=== PATIENT | male | born 1960 | race Two or more races ===

== ENCOUNTER 2024-08-22 09:46 | Outpatient (RCR) | payer MEDICAID, SELFPAY | END 2024-09-05 23:59 | disposition home or self-care (01) | LOC: SCTC 09:46 | PROVIDERS: Referring Provider Nurse Practitioner Family; Visit Provider Nurse Practitioner Family | DX: C18.2 Malignant neoplasm of ascending colon (principal); Z90.49 Acquired absence of other specified parts of digestive tract; R91.8 Other nonspecific abnormal finding of lung field; K64.9 Unspecified hemorrhoids | CPT/HCPCS: 99212; G0463 ==

== ENCOUNTER 2024-08-25 08:55 | Outpatient (AMB) | payer MEDICAID, SELFPAY ==
[2024-08-25 09:14] VITALS: BP 154/79; PULSE 118; RESP 19; TEMP 37.6; O2SAT 98; BMI 29.2
--- NOTE | 2024-08-25 09:14 | PD.GSCLVISIT ---
Vital Signs - [facility] 08/25/24 09:14 Height 1.65 m Height Method Stated Weight 79.634 kg Weight Measurement Method Standing Scale BMI 29.2 BP 154/79 H Blood Pressure Source Automatic Cuff Blood Pressure Location Left Upper Arm Position Sitting Respiration 19 Pulse 118 H Pulse Source Monitor Temp 99.7 F Temp Source Temporal Artery Scan Pulse Oximetry (%) 98 Oxygen Delivery Method Room Air Med/Allergies Allergies & Medications Allergies No Known Allergies Allergy (Verified 08/25/24 09:15) Medication Reconciliation cyanocobalamin (vitamin B-12) 1,000 mcg sublingual tablet 1,000 mcg sublingual QDAY #30 tabs 12/08/23 [Rx Confirmed 08/25/24] peg 3350-electrolytes 236 gram-22.74 gram-6.74 gram-5.86 gram solution (Golytely) 240 ml PO Q10M #4,000 mL 08/25/24 [Rx] MA Intake Visit Data Collection New Patient or Established: Established Patient (seen at [facility] within 3 years) Seen by Clinical Staff ONLY (RN/MA): No Reason for Visit:: FOLLOW UP Pain Present Currently: No Account Services Specialist Required: No PCP or OBGYN visit in last 3 months: Yes Hx Now: No Do You Feel Safe at Home: Yes Authorities Contacted: N/A Smoking Status Smoking Status: Never smoker Immunization / Flu Flu Vaccine in the Last 12 Months: Yes Flu Vaccine Exclusion Criteria: Already Received Past Medical History Past Medical History NEUROLOGIC: Negative Neurological Disorders or Seizures CARDIAC: Positive Deep Vein Thrombosis (LLE Feb 2023 when hospitalized for SBO 2/2 R colon adenocarcinoma s/p AC); Negative Cardiac Disorders or Congestive Heart Failure RESPIRATORY: Positive Chest Deformities (B/L pulmonary nodules of unknown significance); Negative Chronic Obstructive Pulmonary Disease (COPD) or Asthma GASTROINTESTINAL: Positive Gastrointestinal Disorders, Colorectal Cancer (R colonic adenocarcinoma s/p hemicolectomy (Feb 2023)), Hemorrhoids, Gastroesophageal Reflux Disease and Obesity (Not obesity, but yes NAFLD) GENITOURINARY: Negative Genitourinary Disorders or Renal Disease ENDOCRINE: Negative Endocrine Disorders, Diabetes Mellitus Type 1 or Diabetes Mellitus Type 2 HEMATOLOGIC: Positive Anemia (GERRI); Negative Blood Disorders or Sickle Cell Disease OTHER HISTORY: Positive Hospitalization (Feb 2023 for SBO 2/2 colonic adenocarcinoma), Blood Transfusions (On 02/24/2024. 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), Measles and Colorectal Cancer (R colonic adenocarcinoma s/p hemicolectomy (Feb 2023)); Negative Shingles, Falls, Blood Transfusion Reaction, Anesthesia Reactions, Chemotherapy or Radiation Therapy Family History FAMILY HISTORY: Positive Family Cancer (FATHER,MOTHER); Negative Family Neurologic Problems, Family Psychiatric Problems, Family Respiratory Disorders, Family Cardiac Disorders, Family Gastrointestinal Problems, Family Surgery or Family Anesthesia Reaction Social History SMOKING STATUS: Smoking status: Never smoker ALCOHOL: Alcohol Intake: Never HOUSING: Housing: House LIVES WITH: Lives With: Children and Spouse HPI HPI Narrative 64M with stage IIA adenocarcinoma of R colon s/p hemicolectomy 02/2023 here for follow up. In recent weeks pt noted a bulging at the superior aspect of his midline incision, he denies any associated pain/nausea/vomiting but feels the bulge sometimes increases in size. He is otherwise doing well, having regular BMs and has returned to his usual weight. He has not yet had a colonoscopy but has followed up with oncology and as of last visit has not had any signs of cancer recurrence ROS Review of Systems Systems Reviewed: All systems reviewed, normal except as documented Objective/Exam General General Appearance: alert, cooperative and well groomed Resp Respiratory exam: Absent respiratory distress Abdominal Abdominal exam: Present soft and hernia (incisional hernia at superior aspect, approx 3cm in transverse dimension, reducible, no overlying skin changes); Absent distention or tenderness Assessment & Plan Diagnosis / Problem List (1) Incisional hernia of anterior abdominal wall without obstruction or gangrene: Status: Acute Assessment & Plan: 64M s/p R hemicolectomy 02/2023 for stage IIA colon cancer, with signs of an incisional hernia on exam. I explained to pt and family that surgery would ideally be undertaken laparoscopically with mesh placement; I have limited experience in this so I will refer to my colleague for evaluation (2) Colon cancer: Status: Chronic Qualifiers: Colon location: ascending Qualified Code(s): C18.2 - Malignant neoplasm of ascending colon Assessment & Plan: Pt has not yet had a colonoscopy so I will schedule DRAGAN (08/30/24). I explained benefits/risks including bleeding, perforation and/or the need to abort prematurely for safety. Pt expressed understanding and agrees to proceed Orders: Referrals General surgery K43.2 - Incisional hernia without obstruction or gangrene Office Procedures GNS Level of Care Nursing/Assessment Patient Status: Established Patient Nursing Assessment/Reassesment: Medication Reconciliation, Update PMH in EMR and Vital Signs Coordination of Care: Complex Care and Chronic Disease 1-5, Consent,records obtained, informed consent, Education Simp Pt/Fam, Results/Orders obtained and Staff clarify orders Established Patient Charge Established Patient Point Assignment: 90 Established Patient Point Charge: EP Level 3 (80-115) Patient Portal Questionaires Social History Living Situation History Housing: House Tobacco History Smoking Status: Never smoker Alcohol History Alcohol Intake: Never Domestic Abuse History Do You Feel Safe at Home: Yes Review of Systems Report any current symptoms Only answer those that you have currently: Past Medical History Past Medical History Have you ever been diagnosed with any of the following: Neurological Problems Seizures: No Cardiology Problems Congestive Heart Failure: No Deep Vein Thrombosis: Yes (LLE Feb 2023 when hospitalized for SBO 2/2 R colon adenocarcinoma s/p AC) Respiratory Problems Chronic Obstructive Pulmonary Disease (COPD): No Asthma: No Chest Deformities: Yes (B/L pulmonary nodules of unknown significance) Stomache/Intestinal Problems Colorectal Cancer: Yes (R colonic adenocarcinoma s/p hemicolectomy (Feb 2023)) Hemorrhoids: Yes Gastroesophageal Reflux Disease: Yes Obesity: Yes (Not obesity, but yes NAFLD) Genital/Urinary Problems Renal Disease: No Endocrine Problems Diabetes Mellitus Type 1: No Diabetes Mellitus Type 2: No Blood Problems Anemia: Yes (GERRI) Sickle Cell Disease: No Other Problems Hospitalization: Yes (Feb 2023 for SBO 2/2 colonic adenocarcinoma) Shingles: No Falls: No Blood Transfusions: Yes (On 02/24/2024. 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
== END 2024-08-25 09:40 | disposition home or self-care (01) ==
PROVIDERS: Supervising Provider Surgery; Visit Provider Surgery
DX: K43.2 Incisional hernia without obstruction or gangrene (principal); C18.2 Malignant neoplasm of ascending colon
CPT/HCPCS: 99213; G0463

== ENCOUNTER 2024-08-29 09:44 | Outpatient (AMB) | payer MEDICAID, SELFPAY ==
[2024-08-29 09:53] VITALS: BP 148/80; PULSE 77; RESP 16; TEMP 36.6; O2SAT 98; BMI 29.0
--- NOTE | 2024-08-29 09:53 | PD.RESCLINIC ---
Vital Signs 08/29/24 09:53 Height 1.65 m Height Method Stated Weight 79.038 kg Weight Measurement Method Standing Scale BMI 29.0 BP 148/80 H Blood Pressure Source Automatic Cuff Blood Pressure Location Right Upper Arm Position Sitting Respiration 16 Pulse 77 Pulse Source Monitor Temp 97.8 F Temp Source Temporal Artery Scan Pulse Oximetry (%) 98 Oxygen Delivery Method Room Air Allergies/Meds Allergies & Medications Allergies No Known Allergies Allergy (Verified 08/29/24 09:54) Medication Reconciliation cyanocobalamin (vitamin B-12) 1,000 mcg sublingual tablet 1,000 mcg sublingual QDAY #30 tabs 12/08/23 [Rx Confirmed 08/29/24] peg 3350-electrolytes 236 gram-22.74 gram-6.74 gram-5.86 gram solution (Golytely) 240 ml PO Q10M #4,000 mL 08/25/24 [Rx Confirmed 08/29/24] guaifenesin 200 mg tablet 200 mg PO QID PRN cough #24 tabs 08/29/24 [Rx] MA Intake Visit Data Collection New Patient or Established: Established Patient (seen at [facility] within 3 years) Seen by Clinical Staff ONLY (RN/MA): No Pain Present Currently: No Pain scale:: 0 Pain Scale Used: Freeman-Wagner/Numerical Crime Prevention Police Officer Required: No PCP or OBGYN visit in last 3 months: No Hx Now: No Do You Feel Safe at Home: Yes Authorities Contacted: N/A Smoking Status Smoking Status: Never smoker Immunization / Flu Flu Vaccine in the Last 12 Months: No Flu Vaccine Exclusion Criteria: No Exclusion Criteria Past Medical History Past Medical History NEUROLOGIC: Negative Neurological Disorders or Seizures CARDIAC: Positive Deep Vein Thrombosis (LLE Feb 2023 when hospitalized for SBO 2/2 R colon adenocarcinoma s/p AC); Negative Cardiac Disorders or Congestive Heart Failure RESPIRATORY: Positive Chest Deformities (B/L pulmonary nodules of unknown significance); Negative Chronic Obstructive Pulmonary Disease (COPD) or Asthma GASTROINTESTINAL: Positive Gastrointestinal Disorders, Colorectal Cancer (R colonic adenocarcinoma s/p hemicolectomy (Feb 2023)), Hemorrhoids, Gastroesophageal Reflux Disease and Obesity (Not obesity, but yes NAFLD) GENITOURINARY: Negative Genitourinary Disorders or Renal Disease ENDOCRINE: Negative Endocrine Disorders, Diabetes Mellitus Type 1 or Diabetes Mellitus Type 2 HEMATOLOGIC: Positive Anemia (GERRI); Negative Blood Disorders or Sickle Cell Disease OTHER HISTORY: Positive Hospitalization (Feb 2023 for SBO 2/2 colonic adenocarcinoma), Blood Transfusions (On 02/24/2024. *Note: patient is a Hindu), Measles and Colorectal Cancer (R colonic adenocarcinoma s/p hemicolectomy (Feb 2023)); Negative Shingles, Falls, Blood Transfusion Reaction, Anesthesia Reactions, Chemotherapy or Radiation Therapy Family History FAMILY HISTORY: Positive Family Cancer (FATHER,MOTHER); Negative Family Neurologic Problems, Family Psychiatric Problems, Family Respiratory Disorders, Family Cardiac Disorders, Family Gastrointestinal Problems, Family Surgery or Family Anesthesia Reaction Social History SMOKING STATUS: Smoking status: Never smoker ALCOHOL: Alcohol Intake: Never HOUSING: Housing: House LIVES WITH: Lives With: Children and Spouse Patient Portal Questionaires Social History Living Situation History Housing: House Tobacco History Smoking Status: Never smoker Alcohol History Alcohol Intake: Never Domestic Abuse History Do You Feel Safe at Home: Yes Review of Systems Report any current symptoms Only answer those that you have currently: Past Medical History Past Medical History Have you ever been diagnosed with any of the following: Neurological Problems Seizures: No Cardiology Problems Congestive Heart Failure: No Deep Vein Thrombosis: Yes (LLE Feb 2023 when hospitalized for SBO 2/2 R colon adenocarcinoma s/p AC) Respiratory Problems Chronic Obstructive Pulmonary Disease (COPD): No Asthma: No Chest Deformities: Yes (B/L pulmonary nodules of unknown significance) Stomache/Intestinal Problems Colorectal Cancer: Yes (R colonic adenocarcinoma s/p hemicolectomy (Feb 2023)) Hemorrhoids: Yes Gastroesophageal Reflux Disease: Yes Obesity: Yes (Not obesity, but yes NAFLD) Genital/Urinary Problems Renal Disease: No Endocrine Problems Diabetes Mellitus Type 1: No Diabetes Mellitus Type 2: No Blood Problems Anemia: Yes (GERRI) Sickle Cell Disease: No Other Problems Hospitalization: Yes (Feb 2023 for SBO 2/2 colonic adenocarcinoma) Shingles: No Falls: No Blood Transfusions: Yes (On 02/24/2024. *Note: patient is a Hindu) Blood Transfusion Reaction: No Anesthesia Reactions: No Chemotherapy: No Radiation Therapy: No Measles: Yes Surgical History Herniorrhaphy: Yes (ventral abdominal hernia repair) History of Present Illness HPI Narrative Mr. Elmore is a Armenian-speaking 63-year-old male Hindu with PMHx B/L pulmonary nodules of undetermined significance (per CT Jul 2023), GERD, NAFLD, chronic microcytic anemia, LGIB s/p hemorrhoidectomy & anal fissurectomy (Gen Surg Dr Marcelino 2018), s/p ventral abdominal hernia repair, extended hospitalization 02/05-03/03/[address] [facility] for SBO 2/2 invasive colonic adenocarcinoma s/p R hemicolectomy with ileocolic anastomosis (Gen Surg Dr Pandey 02/19/2023) complicated by E coli/marycarmen glabrata abdominal abscess at site of surgical wound, & LLE DVT completed AC course. 08/29/2024: Patient presents today for upper respiratory symptoms which started 4 days ago. Daughter is present who assists with translation. Patient endorses cough, phelgm, sore throat, and congestion. He had fever on the first day but it has since resolved. Patient has been using over the counter Vicks with some improvement. Overall the symptoms have seemed like they were improving. They have recently had a family friend visiting who traveled from [place] with flu-like symptoms and after that patient has been feeling sick. Patient denies any chest pain, shortness of breath, body aches, pain anywhere. Patient is otherwise planned for a colonoscopy for colon cancer follow up with Dr. Pandey on 09/06/2024. Objective/Exam Narrative Physical exam: Physical Exam General: Awake and in no acute distress. Conversational and non-toxic appearing. HEENT: Normocephalic, atraumatic, mucous membranes moist. Ear canals have dried dark cerumen, TMs clear. Post-nasal drip in posterior oropharynx. Nares clear. Mild areas of rash on the upper lip, not sharply demarcated. Heart: Regular rate and rhythm, no murmurs. Lungs: Clear to auscultation with no wheezing or crackles. Abdomen: Healed surgical scars about the umbilicus. Soft bulge above umbilicus reducible. Soft, nondistended, nontender, positive bowel sounds. ?No guarding or rebound tenderness. Neurologic: Alert and oriented x3, no gross neurological deficit, and patient able to move all 4 extremities. Extremities: No edema. Skin: No rash or ecchymoses. Assessment & Plan Diagnosis / Problem List (1) Upper respiratory infection: Status: Acute Qualifiers: URI type: unspecified viral URI Qualified Code(s): J06.9 - Acute upper respiratory infection, unspecified Assessment & Plan: Patient presents 08/29/2024 for 4 days of upper respiratory symptoms including cough, phelgm, sore throat, and congestion. +Sick contact at home. Reported fever on the first day. Symptoms have been improving. Likely to be a viral upper respiratory infection. Since patient is past the 48-hour viji of onset, he in unlikely to benefit from Tamiflu or Paxlovid. However will send tests for COVID, flu, currently no available in the office. Plan: -Ordered flu/COVID [facility] test -Prescribed guaifenesin 200 mg QID prn cough and phelgm -Instructed patient to stay hydrated and aim for 2L fluids daily, warm liquids, use Aquaphor on irritated skin below the nose (2) Colon cancer: Status: Chronic Qualifiers: Colon location: ascending Qualified Code(s): C18.2 - Malignant neoplasm of ascending colon Assessment & Plan: Patient had stage 2B invasive colonic adenocarcinoma s/p R hemicolectomy with ileocolic anastomosis (Dr. Pandey 02/19/2023) now also following with [facility] cancer center. Plan: -Follow up colonoscopy 09/06/2024 as scheduled -Follow up appointment with [facility] in 3 months Orders: Orders Ambulatory COVID-19 Antigen Today J06.9 - Acute upper respiratory infection, unspecified Influenza A & B Rapid Panel Today Office Procedures [facility] Level of Care Nursing/Assessment Patient Status: Established Patient Nursing Assessment/Reassessment: Medication Reconciliation, Update PMH in EMR and Vital Signs Coordination of Care: Complex Care and Chronic Disease 1-5, Consent,records obtained, informed consent, Education Simp Pt/Fam and Staff clarify orders Established Patient Charge Established Patient Point Assignment: 85 Established Patient Point Charge: Level 3 (80-115)
== END 2024-08-29 10:34 | disposition home or self-care (01) ==
LOC: HODAHC 09:44
PROVIDERS: Supervising Provider Internal Medicine
DX: J06.9 Acute upper respiratory infection, unspecified (principal); C18.2 Malignant neoplasm of ascending colon
CPT/HCPCS: 99213; G0463

== ENCOUNTER → 2024-09-07 | Outpatient (CLI) | payer MEDICAID, SELFPAY ==
--- NOTE | 2024-09-07 11:30 | XR_ITS ---
Examination: CT abdomen with intravenous contrast CT pelvis with intravenous contrast 2-D coronal reconstructions 2-D sagittal reconstructions Date and time of exam:September 07, [address] abdomen pelvis July 06, 2023, CT chest September 07, 2024. INDICATIONS: History intestinal obstruction, diagnosis malignant neoplasm colon, anterior umbilical discomfort one year CTDI: vol (mGy) 14.7 DLP: (mGycm) 513 Technique: Multiple axial sections of the abdomen and pelvis have been obtained. 64 slice high-resolution scanner used. 3 mm axial sections have been obtained, post intravenous injection 60 cc [id number] 2-D sagittal, coronal reconstructions obtained. Low dose protocols were performed. One or more of the following dose reduction techniques were used; automated exposure control, adjustment of the mA and/or KV according to patient size, use of iterative reconstruction technique. Findings: No focal liver or splenic lesions No gallstones No pancreatic or adrenal mass No renal or ureteral calculi, no hydronephrosis 5.4 cm umbilical hernia defect containing transverse colon, no incarcerated bowel or definite bowel obstruction Colonic diverticulosis More caudad left paracentral hernia defect, 6.8 cm, containing small bowel but again no incarcerated bowel Colonic diverticulosis Urinary bladder intact Transverse prostate dimension 37 mm Prominent osteopenia IMPRESSION: 5.4 cm umbilical hernia defect containing transverse colon, no incarcerated bowel More caudad left paracentral hernia defect 6.8 cm containing small bowel but no incarcerated bowel No abdominal or pelvic lymphadenopathy
--- NOTE | 2024-09-07 11:30 | XR_ITS ---
Examination: CT chest, without intravenous contrast. Sagittal and coronal 2-D reconstructions. Exam date and time: September 07, [address] chest January 14, 2024 INDICATIONS: Diagnosis malignant neoplasm of colon unspecified 2022, 4 mm pulmonary nodule left upper lobe 2 mm pulmonary nodule right middle lobe on CT chest January 14, 2024 CTDI:vol (mGy) 11 DLP: (mGycm) 440 Technique: Multiple 3.0 mm axial sections of the chest to been obtained. Bone and lung density settings are obtained. Sagittal and coronal 2-D reconstructions have been obtained. Low dose protocols were performed. One or more of the following dose reduction techniques were used; automated exposure control, adjustment of the mA and/or KV according to patient size, use of iterative reconstruction technique. Findings: No thoracic aortic aneurysm dilatation Pulmonary artery segments are not enlarged No interval paratracheal tracheobronchial or bronchopulmonary adenopathy Stable 4 mm pulmonary nodule left upper lobe 2 mm pulmonary nodule right middle lobe No new pulmonary nodules No pneumonia or pulmonary edema or pleural disease No visualized liver or splenic lesion Mildly distended gallbladder No pancreatic mass Moderate osteopenia IMPRESSION: Stable pulmonary nodules compared with January 14, 2024, no new pulmonary nodules No mediastinal lymphadenopathy No pneumonia or pulmonary edema or pleural disease
== END | disposition home or self-care (01) ==
PROVIDERS: PCP Student in an Organized Health Care Education/Training Program; Referring Provider Nurse Practitioner Family; Visit Provider Nurse Practitioner Family
DX: R91.8 Other nonspecific abnormal finding of lung field (principal); K42.9 Umbilical hernia without obstruction or gangrene; K46.9 Unspecified abdominal hernia without obstruction or gangrene; C18.9 Malignant neoplasm of colon, unspecified
CPT/HCPCS: 71250; 74177; A4649; Q9967

== ENCOUNTER 2024-09-08 08:45 | Day surgery (SDC) | payer MEDICAID, SELFPAY ==
[2024-09-08] VITALS (13 sets, daily range): BP systolic 106–169; BP diastolic 44–84; PULSE 72–99; RESP 12–18; TEMP 36.3–37.1; O2SAT 98–100; BMI 25.8
[2024-09-08] MEDS: RINGERS LACTATED 1000 ML 1,000 ML 20 ML IV (10:54)
[2024-09-08] MEDS: fentaNYL CIT INJ 50 mCg/ML AMP 2ML (ASD USE ONLY) IV (10:58)
[2024-09-08] MEDS: DiphenhydrAMINE INJ 50 MG/ML VIAL 25 MG IV (11:01)
[2024-09-08] MEDS: MEPERIDINE INJ 25 MG/ML VIAL (ASD USE ONLY) IV (11:04)
[2024-09-08] MEDS: MIDAZOLAM INJ 1 MG/ML VIAL 2 ML (ASD USE ONLY) 2 MG IV (11:07)
[2024-09-08] MEDS: SIMETHICONE 40 MG/0.6 ML ORAL SYRINGE PO (11:09)
[2024-09-09] MEDS: ONDANSETRON INJ 2 MG/ML INJ 2 ML 4 MG IV (11:09)
== END 2024-09-08 12:10 | disposition home or self-care (01) ==
PROVIDERS: Referring Provider Surgery; Visit Provider Surgery
PROC: 0DBE8ZX Excision of Large Intestine, Via Natural or Artificial Opening Endoscopic, Diagnostic (ICD-10-PCS; CPT 45380; principal; 2024-09-08 09:15)
DX: Z12.11 Encounter for screening for malignant neoplasm of colon (principal); Z85.038 Personal history of other malignant neoplasm of large intestine; D12.3 Benign neoplasm of transverse colon; K64.8 Other hemorrhoids; K57.30 Diverticulosis of large intestine without perforation or abscess without bleeding
CPT/HCPCS: 45385; J1200; J2175; J2250; J2405; J3010; J7120; A9270

== ENCOUNTER 2024-09-27 10:47 | Outpatient (RCR) | payer MEDICAID, SELFPAY | END 2024-10-05 23:59 | disposition home or self-care (01) | LOC: SCTC 10:47 | PROVIDERS: Referring Provider Nurse Practitioner Family; Visit Provider Nurse Practitioner Family | DX: C18.0 Malignant neoplasm of cecum (principal); R91.8 Other nonspecific abnormal finding of lung field; K57.90 Diverticulosis of intestine, part unspecified, without perforation or abscess without bleeding; K64.8 Other hemorrhoids; K42.9 Umbilical hernia without obstruction or gangrene; Z90.49 Acquired absence of other specified parts of digestive tract | CPT/HCPCS: 99212; G0463 ==

== ENCOUNTER 2024-10-03 10:08 | Outpatient (AMB) | payer MEDICAID, SELFPAY ==
--- NOTE | 2024-10-03 10:24 | PD.GSCLVISIT ---
Med/Allergies Allergies & Medications Allergies No Known Allergies Allergy (Verified 10/03/24 10:24) Medication Reconciliation cyanocobalamin (vitamin B-12) 1,000 mcg sublingual tablet 1,000 mcg sublingual QDAY #30 tabs 12/08/23 [Rx Confirmed 10/03/24] ascorbic acid (vitamin C) 125 mg capsule mg PO 10/03/24 [History Confirmed 10/03/24] cholecalciferol (vitamin D3) 25 mcg (1,000 unit) capsule 25 mcg PO QDAY 10/03/24 [History Confirmed 10/03/24] MA Intake Visit Data Collection New Patient or Established: Established Patient (seen at [facility] within 3 years) Reason for Visit:: COLONOSCOPY FOLLOW UP Pain Present Currently: No Pain scale:: 0 Pain Scale Used: Freeman-Wagner/Numerical PCP or OBGYN visit in last 3 months: Yes Hx Now: No Do You Feel Safe at Home: Yes Authorities Contacted: N/A Smoking Status Smoking Status: Former smoker Immunization / Flu Flu Vaccine in the Last 12 Months: Yes Flu Vaccine Exclusion Criteria: Already Received Past Medical History Past Medical History NEUROLOGIC: Negative Neurological Disorders or Seizures CARDIAC: Positive Deep Vein Thrombosis (LLE Feb 2023 when hospitalized for SBO 2/2 R colon adenocarcinoma s/p AC); Negative Cardiac Disorders or Congestive Heart Failure RESPIRATORY: Positive Chest Deformities (B/L pulmonary nodules of unknown significance); Negative Chronic Obstructive Pulmonary Disease (COPD) or Asthma GASTROINTESTINAL: Positive Gastrointestinal Disorders, Colorectal Cancer (R colonic adenocarcinoma s/p hemicolectomy (Feb 2023)), Obstructive Bowel (2022), Hemorrhoids, Gastroesophageal Reflux Disease and Obesity (Not obesity, but yes NAFLD) GENITOURINARY: Negative Genitourinary Disorders or Renal Disease ENDOCRINE: Negative Endocrine Disorders, Diabetes Mellitus Type 1 or Diabetes Mellitus Type 2 HEMATOLOGIC: Positive Anemia (IN THE PAST); Negative Blood Disorders or Sickle Cell Disease OTHER HISTORY: Positive Blood Transfusions (2022) and Colorectal Cancer (R colonic adenocarcinoma s/p hemicolectomy (Feb 2023)); Negative Hospitalization, Shingles, Falls, Blood Transfusion Reaction, Anesthesia Reactions, Chemotherapy, Radiation Therapy, Chicken Pox, Measles or Mumps Family History FAMILY HISTORY: Positive Family Cancer; Negative Family Neurologic Problems, Family Psychiatric Problems, Family Respiratory Disorders, Family Cardiac Disorders, Family Gastrointestinal Problems, Family Surgery or Family Anesthesia Reaction Surgical History SURGICAL: Positive Bowel Surgery (HEMICOLECTOMY) Social History SMOKING STATUS: Smoking status: Former smoker ALCOHOL: Alcohol Intake: Never HOUSING: Housing: House LIVES WITH: Lives With: Children and Spouse HPI HPI Narrative 64M with stage IIA adenocarcinoma of R colon s/p hemicolectomy 02/2023 here for follow up of colonoscopy which was done on 09/08/24 with findings of a diminutive transverse colon polyp (not retrieved), diverticulosis and internal hemorrhoids. Pt reports feeling very well with no pain, he is tolerating diet and has no complaints but is interested in following up for hernia repair ROS Review of Systems Systems Reviewed: All systems reviewed, normal except as documented Objective/Exam General General Appearance: alert, cooperative and well groomed Resp Respiratory exam: Absent respiratory distress Results Colonoscopy report reviewed CT chest and CT AP from 09/2024 reviewed Assessment & Plan Diagnosis / Problem List (1) Encounter to discuss colonoscopy results: Status: Acute Assessment & Plan: 64M with stage IIA adenocarcinoma of R colon s/p hemicolectomy 02/2023, now s/p colonoscopy 09/2024 with findings of a small transverse colon polyp and mild diverticulosis. I explained that given his history he should undergo next colonoscopy in 3 years. All questions were answered and pt is agreeable to this plan (2) Incisional hernia of anterior abdominal wall without obstruction or gangrene: Status: Acute Assessment & Plan: Given the size and somewhat complex nature of his ventral hernias I explained that I would like to refer to a nearby surgeon with more experience in this area. I will confer with my colleagues to see who is the best fit for the pt and will reach out to him by this afternoon to inform who he should follow up with Office Procedures GNS Level of Care Nursing/Assessment Patient Status: Established Patient Nursing Assessment/Reassesment: Medication Reconciliation, Update PMH in EMR and Vital Signs Coordination of Care: Complex Care and Chronic Disease 1-5, Education Complex Pt/Fam, Consent,records obtained, informed consent, Results/Orders obtained and Staff clarify orders Special Needs: Language special needs Established Patient Charge Established Patient Point Assignment: 95 Established Patient Point Charge: Level 3 (80-115) Patient Portal Questionaires Social History Living Situation History Housing: House Tobacco History Smoking Status: Former smoker Alcohol History Alcohol Intake: Never Domestic Abuse History Do You Feel Safe at Home: Yes Review of Systems Report any current symptoms Only answer those that you have currently: Past Medical History Past Medical History Have you ever been diagnosed with any of the following: Neurological Problems Seizures: No Cardiology Problems Congestive Heart Failure: No Deep Vein Thrombosis: Yes (LLE Feb 2023 when hospitalized for SBO 2/2 R colon adenocarcinoma s/p AC) Respiratory Problems Chronic Obstructive Pulmonary Disease (COPD): No Asthma: No Chest Deformities: Yes (B/L pulmonary nodules of unknown significance) Stomache/Intestinal Problems Colorectal Cancer: Yes (R colonic adenocarcinoma s/p hemicolectomy (Feb 2023)) Obstructive Bowel: Yes (2022) Hemorrhoids: Yes Gastroesophageal Reflux Disease: Yes Obesity: Yes (Not obesity, but yes NAFLD) Genital/Urinary Problems Renal Disease: No Endocrine Problems Diabetes Mellitus Type 1: No Diabetes Mellitus Type 2: No Blood Problems Anemia: Yes (IN THE PAST) Sickle Cell Disease: No Other Problems Hospitalization: No Shingles: No Falls: No Blood Transfusions: Yes (2022) Blood Transfusion Reaction: No Anesthesia Reactions: No Chemotherapy: No Radiation Therapy: No Chicken Pox: No Measles: No Mumps: No Surgical History Herniorrhaphy: Yes (ventral abdominal hernia repair)
[2024-10-03 15:33] VITALS: BP 135/78; PULSE 70; RESP 18; TEMP 36.2; O2SAT 99; BMI 29.5
== END 2024-10-03 10:37 | disposition home or self-care (01) ==
LOC: HODSRG 10:08
PROVIDERS: Supervising Provider Surgery; Visit Provider Surgery
DX: Z71.2 Person consulting for explanation of examination or test findings (principal); K63.5 Polyp of colon; K57.90 Diverticulosis of intestine, part unspecified, without perforation or abscess without bleeding; K43.2 Incisional hernia without obstruction or gangrene
CPT/HCPCS: 99213; G0463

== ENCOUNTER → 2024-10-19 | Outpatient (CLI) | payer MEDICAID, SELFPAY ==
--- NOTE | 2024-10-19 12:00 | XR_ITS ---
Examination: Bone densitometry Date and time of exam:September 19, 2024 1235 hours INDICATIONS: Diagnosis malignant neoplasm colon, diagnosis age related osteoporosis Technique: Lumbar spine and hip total bone mineralization values of an calculated. Peak reference and age match control results have been displayed. Findings: Lumbar spine total bone mineralization is0.942 gm/cm2. This is 1.4 standard deviations below peak reference. This is 0.7 standard deviations below age-matched controls. Hip total bone mineralization is 0.887 gm/cm2 This is 1.3 standard deviations below peak reference. This is 0.8 standard deviations below age-matched controls Impression: There is osteopenia based on lumbar spine measurements. There is osteopenia based on hip measurements
== END | disposition home or self-care (01) ==
PROVIDERS: Referring Provider Nurse Practitioner Family; Visit Provider Nurse Practitioner Family
DX: M85.89 Other specified disorders of bone density and structure, multiple sites (principal)
CPT/HCPCS: 77080

== ENCOUNTER 2024-11-15 11:25 | Outpatient (RCR) | payer MEDICAID, SELFPAY | END 2024-12-05 23:59 | disposition home or self-care (01) | LOC: SCTC 11:25 | PROVIDERS: PCP Student in an Organized Health Care Education/Training Program; Referring Provider Nurse Practitioner Family; Visit Provider Nurse Practitioner Family | DX: C18.0 Malignant neoplasm of cecum (principal); Z90.49 Acquired absence of other specified parts of digestive tract; K63.5 Polyp of colon; K64.8 Other hemorrhoids; K57.90 Diverticulosis of intestine, part unspecified, without perforation or abscess without bleeding; M85.80 Other specified disorders of bone density and structure, unspecified site; K42.9 Umbilical hernia without obstruction or gangrene | CPT/HCPCS: 99212; G0463 ==

== ENCOUNTER 2024-12-21 13:37 | Outpatient (AMB) | payer MEDICAID, SELFPAY ==
--- NOTE | 2024-12-21 13:46 | PD.GSCLVISIT ---
Vital Signs - [facility] 12/21/24 13:47 Height 1.65 m Height Method Measured Weight 81.25 kg Weight Measurement Method Standing Scale BMI 29.8 BP 135/74 H Blood Pressure Source Automatic Cuff Blood Pressure Location Right Upper Arm Position Sitting Respiration 16 Pulse 70 Pulse Source Monitor Temp 98.4 F Temp Source Temporal Artery Scan Pulse Oximetry (%) 98 Oxygen Delivery Method Room Air Med/Allergies Allergies & Medications Allergies No Known Allergies Allergy (Verified 12/23/24 19:22) Medication Reconciliation cyanocobalamin (vitamin B-12) 1,000 mcg sublingual tablet 1,000 mcg sublingual QDAY #30 tabs 12/08/23 [Rx Confirmed 12/21/24] ascorbic acid (vitamin C) 125 mg capsule mg PO 10/03/24 [History Confirmed 12/21/24] cholecalciferol (vitamin D3) 25 mcg (1,000 unit) capsule 25 mcg PO QDAY 10/03/24 [History Confirmed 12/21/24] MA Intake Visit Data Collection New Patient or Established: Established Patient (seen at [facility] within 3 years) Seen by Clinical Staff ONLY (RN/MA): Yes Pain Present Currently: No Sales And Service Change Leader Required: No PCP or OBGYN visit in last 3 months: Yes Hx Now: No Do You Feel Safe at Home: Yes Authorities Contacted: N/A Smoking Status Smoking Status: Former smoker Past Medical History Past Medical History NEUROLOGIC: Negative Neurological Disorders or Seizures CARDIAC: Positive Deep Vein Thrombosis (LLE Feb 2023 when hospitalized for SBO 2/2 R colon adenocarcinoma s/p AC); Negative Cardiac Disorders or Congestive Heart Failure RESPIRATORY: Positive Chest Deformities (B/L pulmonary nodules of unknown significance); Negative Chronic Obstructive Pulmonary Disease (COPD) or Asthma GASTROINTESTINAL: Positive Gastrointestinal Disorders, Colorectal Cancer (R colonic adenocarcinoma s/p hemicolectomy (Feb 2023)), Obstructive Bowel (2022), Hemorrhoids, Gastroesophageal Reflux Disease and Obesity (Not obesity, but yes NAFLD) GENITOURINARY: Negative Genitourinary Disorders or Renal Disease MUSCULOSKELETAL: Positive Musculoskeletal Disorders ENDOCRINE: Negative Endocrine Disorders, Diabetes Mellitus Type 1 or Diabetes Mellitus Type 2 HEMATOLOGIC: Positive Anemia (IN THE PAST); Negative Blood Disorders or Sickle Cell Disease OTHER HISTORY: Positive Blood Transfusions (2022) and Colorectal Cancer (R colonic adenocarcinoma s/p hemicolectomy (Feb 2023)); Negative Hospitalization, Shingles, Falls, Blood Transfusion Reaction, Anesthesia Reactions, Chemotherapy, Radiation Therapy, Chicken Pox, Measles or Mumps Family History FAMILY HISTORY: Positive Family Cancer; Negative Family Neurologic Problems, Family Psychiatric Problems, Family Respiratory Disorders, Family Cardiac Disorders, Family Gastrointestinal Problems, Family Surgery or Family Anesthesia Reaction Surgical History SURGICAL: Positive Bowel Surgery (HEMICOLECTOMY) Social History SMOKING STATUS: Smoking status: Former smoker SUBSTANCE USE: Substance use type: does not use ALCOHOL: Alcohol Intake: Never HOUSING: Housing: House LIVES WITH: Lives With: Children and Spouse Travel Risk Travel Hx Recent Travel: No Office Procedures GNS Level of Care Nursing/Assessment Patient Status: Established Patient Nursing Assessment/Reassesment: Medication Reconciliation, Update PMH in EMR and Vital Signs Coordination of Care: Complex Care and Chronic Disease 1-5, Consent,records obtained, informed consent, Education Simp Pt/Fam, Results/Orders obtained and Staff clarify orders Special Needs: Language special needs Established Patient Charge Established Patient Point Assignment: 90 Patient Portal Questionaires Social History Living Situation History Housing: House Tobacco History Smoking Status: Former smoker Alcohol History Alcohol Intake: Never Domestic Abuse History Do You Feel Safe at Home: Yes Review of Systems Report any current symptoms Only answer those that you have currently: Past Medical History Past Medical History Have you ever been diagnosed with any of the following: Neurological Problems Seizures: No Cardiology Problems Congestive Heart Failure: No Deep Vein Thrombosis: Yes (LLE Feb 2023 when hospitalized for SBO 2/2 R colon adenocarcinoma s/p AC) Respiratory Problems Chronic Obstructive Pulmonary Disease (COPD): No Asthma: No Chest Deformities: Yes (B/L pulmonary nodules of unknown significance) Stomache/Intestinal Problems Colorectal Cancer: Yes (R colonic adenocarcinoma s/p hemicolectomy (Feb 2023)) Obstructive Bowel: Yes (2022) Hemorrhoids: Yes Gastroesophageal Reflux Disease: Yes Obesity: Yes (Not obesity, but yes NAFLD) Genital/Urinary Problems Renal Disease: No Endocrine Problems Diabetes Mellitus Type 1: No Diabetes Mellitus Type 2: No Blood Problems Anemia: Yes (IN THE PAST) Sickle Cell Disease: No Other Problems Hospitalization: No Shingles: No Falls: No Blood Transfusions: Yes (2022) Blood Transfusion Reaction: No Anesthesia Reactions: No Chemotherapy: No Radiation Therapy: No Chicken Pox: No Measles: No Mumps: No Surgical History Herniorrhaphy: Yes (ventral abdominal hernia repair)
[2024-12-21 13:47] VITALS: BP 135/74; PULSE 70; RESP 16; TEMP 36.9; O2SAT 98; BMI 29.8
== END 2024-12-21 16:00 | disposition home or self-care (01) ==
LOC: HODSRG 13:37
PROVIDERS: PCP Student in an Organized Health Care Education/Training Program; Referring Provider Student in an Organized Health Care Education/Training Program; Supervising Provider Surgery; Visit Provider Surgery
DX: Z76.89 Persons encountering health services in other specified circumstances (principal)
CPT/HCPCS: 99213; G0463

== ENCOUNTER 2024-12-23 19:16 | Emergency (ER) | payer MEDICAID, SELFPAY ==
[2024-12-23 19:18] VITALS: BMI 27.3
[2024-12-23 19:28] VITALS: BP 156/84; PULSE 70; RESP 18; TEMP 36.6; O2SAT 97
--- NOTE | 2024-12-23 20:06 | PD.EDGIBLD ---
ED GI Bleed RME/HPI General Chief complaint: GI Bleed Stated complaint: rectal bleeding Time Seen by Provider: 12/23/24 20:01 Arrival date/time: 12/23/24 19:16 64M with history of R colonic adenocarcinoma s/p hemicolectomy and DVT presents to ED with several days of bright red rectal bleed after having BM. This started after Dr. Mendoza pressed on his stomach to evaluate for ab hernia after being referred by Dr. Pandey. Patient denies fevers/chills, N/V, ab pain, diarrhea, and constipation. Patient had normal colonoscopy back in August of this year. Limitations: no limitations Related Data Home Medications ?Medication ?Instructions ?Recorded ?Confirmed ascorbic acid (vitamin C) 125 mg mg PO 10/03/24 12/21/24 capsule cholecalciferol (vitamin D3) 25 25 mcg PO QDAY 10/03/24 12/21/24 mcg (1,000 unit) capsule Previous Rx's ?Medication ?Instructions ?Recorded cyanocobalamin (vitamin B-12) 1,000 mcg sublingual QDAY #30 tabs 12/08/23 1,000 mcg sublingual tablet Allergies Allergy/AdvReac Type Severity Reaction Status Date / Time No Known Allergies Allergy Verified 12/23/24 19:22 Review of Systems Review of Systems Systems Reviewed: All systems reviewed, normal except as documented Constitutional Constitutional: Reports system reviewed and no additional complaints, except as documented, Denies fever(s) and Denies headache(s) ENT Ears, Nose, Mouth, and Throat: Denies disequilibrium and Denies headache(s) Cardiovascular Cardiovascular: Reports system reviewed and no additional complaints, except as documented, Denies chest pain and Denies dyspnea Respiratory Respiratory: Reports system reviewed and no additional complaints, except as documented, Denies cough and Denies dyspnea Gastrointestinal Gastrointestinal: Reports system reviewed and no additional complaints, except as documented, Reports as per HPI, Denies abdominal pain, Reports hematochezia, Denies nausea and Denies vomiting Neurologic Neurologic: Reports system reviewed and no additional complaints, except as documented, Denies confusion, Denies disequilibrium and Denies headache(s) Psychiatric Psychiatric: Denies confusion Past Medical History Past Medical History NEUROLOGIC: Negative Neurological Disorders or Seizures CARDIAC: Positive Deep Vein Thrombosis (LLE Feb 2023 when hospitalized for SBO 2/2 R colon adenocarcinoma s/p AC); Negative Cardiac Disorders or Congestive Heart Failure RESPIRATORY: Positive Chest Deformities (B/L pulmonary nodules of unknown significance); Negative Chronic Obstructive Pulmonary Disease (COPD) or Asthma GASTROINTESTINAL: Positive Gastrointestinal Disorders, Colorectal Cancer (R colonic adenocarcinoma s/p hemicolectomy (Feb 2023)), Obstructive Bowel (2022), Hemorrhoids, Gastroesophageal Reflux Disease and Obesity (Not obesity, but yes NAFLD) GENITOURINARY: Negative Genitourinary Disorders or Renal Disease MUSCULOSKELETAL: Positive Musculoskeletal Disorders ENDOCRINE: Negative Endocrine Disorders, Diabetes Mellitus Type 1 or Diabetes Mellitus Type 2 HEMATOLOGIC: Positive Anemia (IN THE PAST); Negative Blood Disorders or Sickle Cell Disease OTHER HISTORY: Positive Blood Transfusions (2022) and Colorectal Cancer (R colonic adenocarcinoma s/p hemicolectomy (Feb 2023)); Negative Hospitalization, Shingles, Falls, Blood Transfusion Reaction, Anesthesia Reactions, Chemotherapy, Radiation Therapy, Chicken Pox, Measles or Mumps Family History FAMILY HISTORY: Positive Family Cancer; Negative Family Neurologic Problems, Family Psychiatric Problems, Family Respiratory Disorders, Family Cardiac Disorders, Family Gastrointestinal Problems, Family Surgery or Family Anesthesia Reaction Surgical History SURGICAL: Positive Bowel Surgery (HEMICOLECTOMY) Social History SMOKING STATUS: Never smoker SUBSTANCE USE: does not use ED Exam General Limitations: Present no limitations General appearance: Present alert and in no apparent distress Head Head exam: Present atraumatic Eye Eye exam: Present normal appearance, PERRL and EOMI ENT ENT exam: Present normal exam, normal oropharynx and mucous membranes moist Neck Neck exam: Present normal inspection, full ROM and trachea midline Chest Chest inspection: Present normal inspection and symmetric chest wall rise Respiratory Respiratory exam: Present normal lung sounds bilaterally Cardiovascular Cardiovascular exam: Present regular rate, normal rhythm and normal heart sounds Abdominal Exam Abdominal exam: Present soft and normal bowel sounds Rectal Exam Rectal exam: Present other (minimal bright red blood) Extremities Exam Extremities exam: Present normal inspection and full ROM Back Exam Back exam: Present normal inspection and full ROM Neurological Exam Neurological exam: Present alert, oriented X3 and CN II-XII intact Psychiatric Psychiatric exam: Present normal affect and normal mood Skin Skin exam: Present warm, dry, intact and normal color Course Quality Measures none Orders Category Date Time Status CBC Stat Lab 12/23/24 20:32 Completed CMP [Comprehensive Metabolic Panel] Stat Lab 12/23/24 20:32 Completed INR [Prothrombin Time with INR] Stat Lab 12/23/24 20:32 Completed PTT [Partial Thromboplastin Time] Stat Lab 12/23/24 20:32 Completed Vital Signs Vital signs: Vital Signs Temperature 97.9 F 12/23/24 19:28 Pulse Rate 70 12/23/24 19:28 Respiratory Rate 18 12/23/24 19:28 Blood Pressure 156/84 H 12/23/24 19:28 Pulse Oximetry (%) 97 12/23/24 19:28 Oxygen Delivery Method Room Air 12/23/24 19:28 O2 at 97% on RA and WNLs GI Bleed MDM Narrative MDM Narrative:: 64M with history of R colonic adenocarcinoma s/p hemicolectomy and DVT presents to ED with several days of bright red rectal bleed after having BM. This started after Dr. Mendoza pressed on his stomach to evaluate for ab hernia after being referred by Dr. Pandey. Patient denies fevers/chills, N/V, ab pain, diarrhea, and constipation. Patient had normal colonoscopy back in August of this year. Physical exam reveals non-tender ab. Rectal exam with machine coil assembler reveals no obvious hemorrhoids. Scant bright red blood. Patient is afebrile, calm, and alert. HgB 12.5. CMP and coags unremarkable. Spoke to Dr. Hall, GI, who agrees can be discharged and followed-up outpatient with strict return precautions. Patient data External records reviewed:: [facility] previous records Clinical information provided by:: patient Social determinants that could affect healthcare access:: none Patient has the following chronic illnesses:: R colonic adenocarcinoma s/p hemicolectomy and DVT How is presenting disease/condition affected by chronic disease/condition?: exacerbated by Evaluation data The following diagnostics were reviewed and interpreted by me:: lab results Lab and/or radiology exams considered but not ordered:: ordered Interpretation Summary: above Medications / Prescriptions Medications or Prescriptions considered but not ordered:: not rodered Medication administrations:: n/a Consultations Consultation(s) initiated? (list below): Yes Diagnosis GI bleed differential diagnosis: hemorrhoids, infectious diarrhea, esophageal varices, gastritis, Ese-Adorno syndrome, Upper gastrointestinal hemorrhage, Lower gastrointestinal hemorrhage, hematochezia, melena, anal fissure and other (bright red rectal bleeding) Most likely diagnosis given after review of the tests above:: bright red rectal bleeding Admission Indicated Admission indicated?: not indicated Admission Request Was there a request for admission?: No Disposition Plan Disposition Plan: Discharge Discharge Attestation Discharge Attestation: The patient and all family members were given an opportunity to ask questions and understood the discharge instructions. Discharge instructions specifically effects, indications for sooner follow up or return to the emergency department, and the expected course of current diagnosis. Patient condition: Stable Discharge Plan Plan Patient Disposition: HOME (Self Care) Discharge Disposition comment: Stable Prescriptions/Referrals Prescriptions/Med Rec: No Action cyanocobalamin (vitamin B-12) 1,000 mcg tablet, sublingual 1,000 mcg sublingual QDAY Qty: 30 3RF ascorbic acid (vitamin C) 125 mg capsule PO cholecalciferol (vitamin D3) 25 mcg (1,000 unit) capsule 25 mcg PO QDAY Referrals: No Primary/Family,Physician [Primary Care Provider] - In 1 week Problem List Clinical Impression: Bright red rectal bleeding Patient/Caregiver Discharge Instructions Education Materials: ED Lower GI Bleeding (Stable) Additional Instructions: Please follow-up with PCP within 24-48 hours and return immediately if symptoms worsen. Print Language: Rw[place]an Stand Alone Forms: Patient Portal Info Letter SEDA/SHANIQUA Supervising Physician RADHA Supervising Physician: Dr. Lyles
[2024-12-23 20:53] LABS: Basophils # (Auto) 0.1 Thou/mm3 (0.0-0.2); Basophils % (Auto) 1 % (0-2.5); Eosinophils # (Auto) 0.3 Thou/mm3 (0.0-0.5); Eosinophils % (Auto) 3 % (0-10); Hematocrit 39.1 % (41.0-53.0); Hemoglobin 12.5 g/dL (13.5-16.0); Immature Granulocytes Auto 0.02 Thou/mm3 (0.00-0.00); Lymphocytes # (Auto) 3.2 Thou/mm3 (1.0-4.8); Lymphocytes % (Auto) 34 % (10-50); Mean Corpuscular HGB Conc 32.0 g/dl (31.0-37.0); Mean Corpuscular Hemoglobin 31.2 pg (25.0-35.0); Mean Corpuscular Volume 98 fL (80-100); Monocytes # (Auto) 1.0 Thou/mm3 (0.0-0.8); Monocytes % (Auto) 11 % (0-12); Neutrophils # (Auto) 4.8 Thou/mm3 (1.8-7.7); Neutrophils % (Auto) 51 % (37-80); Nucleated Red Blood Cell # 0.00 Thou/mm3 (0.00-0.00); Nucleated Red Blood Cell % 0 /100 WBC (0); Platelet Count 274 Thou/mm3 (140-440); RDW Standard Deviation 45.1 fL (35.1-43.9); Red Blood Count 4.01 Miln/mm3 (4.50-5.90); White Blood Count 9.3 Thou/mm3 (3.8-10.6)
[2024-12-23 21:18] LABS: INR 1.0 (0.9-1.3); Partial Thromboplastin Time 29.2 Seconds (22.0-36.0); Prothrombin Time 11.1 Seconds (9.0-12.2)
[2024-12-23 21:22] LABS: Alanine Aminotransferase 11 U/L (10-49); Albumin, Serum 4.7 gm/dL (3.4-4.8); Albumin/Globulin Ratio 1.7 (1.2-2.2); Alkaline Phosphatase 100 U/L (46-116); Anion Gap 7 (7-16); Aspartate Amino Transferase 20 U/L (0-34); BUN/Creatinine Ratio 13 Ratio (12-20); Bilirubin,Total 0.3 mg/dL (0.3-1.2); Blood Urea Nitrogen 12 mg/dL (9-23); Calcium 9.6 mg/dL (8.3-10.6); Calcium (Corrected) 9.6 mg/dL (8.5-10.1); Carbon Dioxide 28.5 mMol/L (20.0-31.0); Chloride 104 mMol/L (98-107); Creatinine (Component) 0.9 mg/dL (0.6-1.3); Estimated Creatinine Clearance 81.3 mL/min (>60); Globulin 2.8 gm/dL (2.3-3.5); Glucose 78 mg/dL (74-106); Osmolality,Calculated 276 (275-295); Potassium 3.9 mMol/L (3.4-5.1); Sodium 139 mMol/L (136-145); Total Protein 7.5 gm/dL (5.7-8.2); eGFR > 60 See Note
== END 2024-12-23 21:48 | disposition home or self-care (01) ==
PROVIDERS: Physician Assistant; Emergency Provider Emergency Medicine
DX: K62.5 Hemorrhage of anus and rectum (principal)
CPT/HCPCS: 36415; 80053; 85025; 85610; 85730; 99283

== ENCOUNTER 2024-12-29 13:02 | Outpatient (AMB) | payer MEDICAID, SELFPAY ==
[2024-12-29 13:12] VITALS: BP 145/84; PULSE 73; RESP 18; TEMP 36.6; O2SAT 98; BMI 26.6
--- NOTE | 2024-12-29 13:12 | GSCOFFNT_ITS ---
Vital Signs - [facility] 12/29/24 13:12 Height 1.73 m Height Method Stated Weight 79.605 kg Weight Measurement Method Standing Scale BMI 26.6 BP 145/84 H Blood Pressure Source Automatic Cuff Blood Pressure Location Right Upper Arm Position Sitting Respiration 18 Pulse 73 Pulse Source Monitor Temp 98 F Temp Source Temporal Artery Scan Pulse Oximetry (%) 98 Oxygen Delivery Method Room Air Med/Allergies Allergies & Medications Allergies No Known Allergies Allergy (Verified 12/29/24 13:13) Medication Reconciliation cyanocobalamin (vitamin B-12) 1,000 mcg sublingual tablet 1,000 mcg sublingual QDAY #30 tabs 12/08/23 [Rx Confirmed 12/29/24] ascorbic acid (vitamin C) 125 mg capsule mg PO 10/03/24 [History Confirmed 12/29/24] cholecalciferol (vitamin D3) 25 mcg (1,000 unit) capsule 25 mcg PO QDAY 10/03/24 [History Confirmed 12/29/24] hydrocortisone acetate 25 mg rectal suppository 25 mg UT QHS hemorrhoids #24 ea 12/29/24 [Rx] MA Intake Visit Data Collection New Patient or Established: Established Patient (seen at [facility] within 3 years) Reason for Visit:: F/U HERNIA REFERRAL Pain Present Currently: No Pain scale:: 0 Pain Scale Used: Freeman-Wagner/Numerical Assembly Line Robot Operator Required: Yes PCP or OBGYN visit in last 3 months: Yes Hx Now: No Do You Feel Safe at Home: Yes Authorities Contacted: N/A Smoking Status Smoking Status: Never smoker Immunization / Flu Flu Vaccine in the Last 12 Months: No Flu Vaccine Exclusion Criteria: No Exclusion Criteria Past Medical History Past Medical History NEUROLOGIC: Negative Neurological Disorders or Seizures CARDIAC: Positive Deep Vein Thrombosis (LLE Feb 2023 when hospitalized for SBO 2/2 R colon adenocarcinoma s/p AC); Negative Cardiac Disorders or Congestive Heart Failure RESPIRATORY: Positive Chest Deformities (B/L pulmonary nodules of unknown significance); Negative Chronic Obstructive Pulmonary Disease (COPD) or Asthma GASTROINTESTINAL: Positive Gastrointestinal Disorders, Colorectal Cancer (R colonic adenocarcinoma s/p hemicolectomy (Feb 2023)), Obstructive Bowel (2022), Hemorrhoids, Gastroesophageal Reflux Disease and Obesity (Not obesity, but yes NAFLD) GENITOURINARY: Negative Genitourinary Disorders or Renal Disease MUSCULOSKELETAL: Positive Musculoskeletal Disorders ENDOCRINE: Negative Endocrine Disorders, Diabetes Mellitus Type 1 or Diabetes Mellitus Type 2 HEMATOLOGIC: Positive Anemia (IN THE PAST); Negative Blood Disorders or Sickle Cell Disease OTHER HISTORY: Positive Blood Transfusions (2022) and Colorectal Cancer (R colonic adenocarcinoma s/p hemicolectomy (Feb 2023)); Negative Hospitalization, Shingles, Falls, Blood Transfusion Reaction, Anesthesia Reactions, Chemotherapy, Radiation Therapy, Chicken Pox, Measles or Mumps Family History FAMILY HISTORY: Positive Family Cancer; Negative Family Neurologic Problems, Family Psychiatric Problems, Family Respiratory Disorders, Family Cardiac Disorders, Family Gastrointestinal Problems, Family Surgery or Family Anesthesia Reaction Surgical History SURGICAL: Positive Bowel Surgery (HEMICOLECTOMY) Social History SMOKING STATUS: Smoking status: Never smoker SUBSTANCE USE: Substance use type: does not use ALCOHOL: Alcohol Intake: Never HOUSING: Housing: House LIVES WITH: Lives With: Children and Spouse Travel Risk Travel Hx Recent Travel: No HPI HPI Narrative 64M with stage IIA adenocarcinoma of R colon s/p hemicolectomy 02/2023 here for follow up of hernia. I had referred pt for consideration of robotic surgery but pt was unable to follow up with that specialist and is continuing to have discomfort from his hernia. He has also noted intermittent rectal bleeding, overall it has decreased since it first began and pt was evaluated in ER with no acute findings ROS Review of Systems Systems Reviewed: All systems reviewed, normal except as documented Objective/Exam General General Appearance: alert, cooperative and well groomed Resp Respiratory exam: Absent respiratory distress Abdominal Abdominal exam: Present soft and hernia (incisional hernia with no overlying skin changes, no tenderness); Absent distention or tenderness Rectal Rectal exam: Present normal inspection, normal rectal tone and hemorrhoids (small internal hemorrhoids on anoscopy) Results CT reviewed Assessment & Plan Diagnosis / Problem List (1) Incisional hernia of anterior abdominal wall without obstruction or gangrene: Status: Acute Assessment & Plan: 64M with stage IIA adenocarcinoma of R colon s/p hemicolectomy 02/2023 with symptomatic incisional hernia. I offered the option of referral to another robotic surgeon for minimally invasive repair vs open repair with mesh and pt and family prefer open repair at [facility]. I explained risks of bleeding, infection and hernia recurrence as well as the risks/benefits of mesh placement. All questions were answered and pt is agreeable to proceeding Plan: Ventral hernia repair with mesh 01/18 (2) Bright red rectal bleeding: Status: Acute Assessment & Plan: As pt underwent colonoscopy 09/2024 he is unlikely to have a recurrence of colon CA, and he was noted to have internal hemorrhoids on the colonoscopy which may be the cause of his bleeding. Visibility on today's exam was somewhat limited. I will prescribe anusol suppositories and continue following up Office Procedures GNS Level of Care Nursing/Assessment Patient Status: Established Patient Nursing Assessment/Reassesment: Medication Reconciliation, Update PMH in EMR and Vital Signs Coordination of Care: Complex Care and Chronic Disease 1-5, Education Complex Pt/Fam, 1 Ins Authorization and Staff clarify orders Special Needs: Language special needs Established Patient Charge Established Patient Point Assignment: 100 Established Patient Point Charge: EP Level 3 (80-115) Patient Portal Questionaires Social History Living Situation History Housing: House Tobacco History Smoking Status: Never smoker Alcohol History Alcohol Intake: Never Domestic Abuse History Do You Feel Safe at Home: Yes Review of Systems Report any current symptoms Only answer those that you have currently: Past Medical History Past Medical History Have you ever been diagnosed with any of the following: Neurological Problems Seizures: No Cardiology Problems Congestive Heart Failure: No Deep Vein Thrombosis: Yes (LLE Feb 2023 when hospitalized for SBO 2/2 R colon adenocarcinoma s/p AC) Respiratory Problems Chronic Obstructive Pulmonary Disease (COPD): No Asthma: No Chest Deformities: Yes (B/L pulmonary nodules of unknown significance) Stomache/Intestinal Problems Colorectal Cancer: Yes (R colonic adenocarcinoma s/p hemicolectomy (Feb 2023)) Obstructive Bowel: Yes (2022) Hemorrhoids: Yes Gastroesophageal Reflux Disease: Yes Obesity: Yes (Not obesity, but yes NAFLD) Genital/Urinary Problems Renal Disease: No Endocrine Problems Diabetes Mellitus Type 1: No Diabetes Mellitus Type 2: No Blood Problems Anemia: Yes (IN THE PAST) Sickle Cell Disease: No Other Problems Hospitalization: No Shingles: No Falls: No Blood Transfusions: Yes (2022) Blood Transfusion Reaction: No Anesthesia Reactions: No Chemotherapy: No Radiation Therapy: No Chicken Pox: No Measles: No Mumps: No Surgical History Herniorrhaphy: Yes (ventral abdominal hernia repair)
== END 2024-12-29 13:48 | disposition home or self-care (01) ==
LOC: HODSRG 13:02
PROVIDERS: PCP Student in an Organized Health Care Education/Training Program; Referring Provider Student in an Organized Health Care Education/Training Program; Supervising Provider Surgery; Visit Provider Surgery
DX: K43.2 Incisional hernia without obstruction or gangrene (principal); K62.5 Hemorrhage of anus and rectum; K64.8 Other hemorrhoids; C18.9 Malignant neoplasm of colon, unspecified
CPT/HCPCS: 99213; G0463

== ENCOUNTER 2025-01-18 15:08 | Observation (INO) | payer MEDICAID, SELFPAY ==
--- NOTE | 2025-01-17 07:25 | EKG_ITS ---
[facility] Test Date: 2025-01-17 Pat Name: ACE REEVES Department: Room: - Gender: Male Mercerizing Range Feeder: KATINA : 1960 Requested By: Balta Giles Order Number: [id number] Reading MD: Balta Giles Measurements Intervals [place] Rate: 65 P: 66 FL: 152 QRS: 50 QRSD: 86 T: 65 QT: 384 QTc: 401 Interpretive Statements SINUS RHYTHM POSSIBLE RIGHT VENTRICULAR CONDUCTION DELAY [RSR (QR) IN V1/V2] Compared to ECG 02/19/2023 13:13:16 No significant changes /store/S0/[id number]/ecg/[id number].pdf
[2025-01-17 09:34] VITALS: BMI 26.6
[2025-01-17 11:28] LABS: Basophils # (Auto) 0.0 Thou/mm3 (0.0-0.2); Basophils % (Auto) 1 % (0-2.5); Eosinophils # (Auto) 0.2 Thou/mm3 (0.0-0.5); Eosinophils % (Auto) 2 % (0-10); Hematocrit 40.2 % (41.0-53.0); Hemoglobin 12.8 g/dL (13.5-16.0); Immature Granulocytes Auto 0.01 Thou/mm3 (0.00-0.00); Lymphocytes # (Auto) 2.3 Thou/mm3 (1.0-4.8); Lymphocytes % (Auto) 29 % (10-50); Mean Corpuscular HGB Conc 31.8 g/dl (31.0-37.0); Mean Corpuscular Hemoglobin 31.1 pg (25.0-35.0); Mean Corpuscular Volume 98 fL (80-100); Monocytes # (Auto) 0.6 Thou/mm3 (0.0-0.8); Monocytes % (Auto) 8 % (0-12); Neutrophils # (Auto) 4.7 Thou/mm3 (1.8-7.7); Neutrophils % (Auto) 61 % (37-80); Nucleated Red Blood Cell # 0.00 Thou/mm3 (0.00-0.00); Nucleated Red Blood Cell % 0 /100 WBC (0); Platelet Count 278 Thou/mm3 (140-440); RDW Standard Deviation 47.2 fL (35.1-43.9); Red Blood Count 4.12 Miln/mm3 (4.50-5.90); White Blood Count 7.7 Thou/mm3 (3.8-10.6)
[2025-01-17 11:30] LABS: INR 1.0 (0.9-1.3); Partial Thromboplastin Time 28.2 Seconds (22.0-36.0); Prothrombin Time 11.2 Seconds (9.0-12.2)
[2025-01-17 11:31] LABS: Alanine Aminotransferase 29 U/L (10-49); Albumin, Serum 4.7 gm/dL (3.4-4.8); Albumin/Globulin Ratio 1.7 (1.2-2.2); Alkaline Phosphatase 103 U/L (46-116); Anion Gap 8 (7-16); Aspartate Amino Transferase 27 U/L (0-34); BUN/Creatinine Ratio 9 Ratio (12-20); Bilirubin,Total 0.5 mg/dL (0.3-1.2); Blood Urea Nitrogen 9 mg/dL (9-23); Calcium 9.3 mg/dL (8.3-10.6); Calcium (Corrected) 9.3 mg/dL (8.5-10.1); Carbon Dioxide 27.7 mMol/L (20.0-31.0); Chloride 106 mMol/L (98-107); Creatinine (Component) 1.0 mg/dL (0.6-1.3); Estimated Creatinine Clearance 70.7 mL/min (>60); Globulin 2.8 gm/dL (2.3-3.5); Glucose 95 mg/dL (74-106); Osmolality,Calculated 281 (275-295); Potassium 3.9 mMol/L (3.4-5.1); Sodium 142 mMol/L (136-145); Total Protein 7.5 gm/dL (5.7-8.2); eGFR > 60 See Note
[2025-01-18] VITALS (12 sets, daily range): BP systolic 145–174; BP diastolic 70–97; PULSE 68–102; RESP 12–22; TEMP 36.2–36.6; O2SAT 94–100; BMI 26.6
[2025-01-18] MEDS: RINGERS LACTATED 1000 ML 1,000 ML 20 ML IV (09:15)
--- NOTE | 2025-01-18 13:07 | PD.SUROPNT ---
Date of Procedure 01/18/25 Pre Op Diagnosis Incisional hernia with 2 separate defects Post Op Diagnosis Same Procedure Laparotomy, repair of incisional hernias with mesh Findings Superior incisional hernia defect approximately 5 cm, more inferior incisional hernia defect approximately 6 cm Procedure Description After discussion of risks and benefits with patient and family, patient was brought to the operating room, SCDs were placed and general anesthesia was induced. He received preoperative antibiotics and was prepped and draped in the usual sterile fashion. After timeout the existing midline incision was reopened using a #10 blade. The subcutaneous tissue was divided with electrocautery and the adhesions of intra-abdominal contents to the fascia were sharply excised with Metzenbaum scissors. The fascia of the superior incisional defect was freed from all its adhesions and was measured to be approximately 5 cm in transverse dimension. A 7.6 cm Ventrio mesh was placed into the defect and was sutured first in 4 corners using 2-0 Prolene in a [id number] fashion. Additional dlqawe-uw-zjial sutures were placed with 2-0 Prolene between these sutures to prevent any intra-abdominal contents from insinuating between the fascia and the mesh. The same process was done with the inferior fascial defect which was measured approximately 6 cm transverse dimension, using an 11.4 cm Ventrio mesh. The subcutaneous tissue was closed using interrupted 2-0 Vicryl sutures and the skin was reinforced with skin luis. The wound was covered with Telfa, gauze and Tegaderm. Patient was extubated and brought to PACU in stable condition Pathology / specimen None Estimated Blood Loss 50 Surgeon Ling Pandey MD Surgical Staff Operation Date: 01/18/25 10:30 Case Staff Assisting Surgeon: Jay Gerard AIRCRAFT ACCESSORIES MECHANIC: Everton Ayala RNfashion photographer: Saida Pacheco
--- NOTE | 2025-01-18 13:16 | SUR.PHASEI ---
pt received from OR in recovery bay 2. pt asleep but responds to voice, breathing unlabored on oxymask 8l. v/s stable. pt dressing to abd cdi. abd binder place. report received from Edward FRAZIER and Andrea CULP.
--- NOTE | 2025-01-18 15:00 | SUR.PHASEII ---
pt awake and alert, breathing unlabored on room air. v/s stable. pt dressing to abd cdi, abd binder in place. report called to Martine Lewis. pt will be transferred to room at this time.
[2025-01-19] VITALS: BP 156/74; PULSE 86; RESP 18; TEMP 37.2; O2SAT 94
[2025-01-19 04:00] VITALS: BP 152/81; PULSE 86; RESP 18; TEMP 36.6; O2SAT 95
[2025-01-19 07:34] VITALS: BP 154/81; PULSE 96; RESP 18; TEMP 36.6; O2SAT 95
[2025-01-19 11:58] VITALS: BP 138/84; PULSE 88; RESP 17; TEMP 37.3; O2SAT 95
--- NOTE | 2025-01-19 12:48 | PD.SURPROG ---
Documentation for date of: 01/19/25 Subjective Subjective Narrative: Pain well-controlled without any medications, no nausea, patient of reports feeling slightly warm overnight but this improves with cold cloth, he is tolerating diet and passing gas with normal vitals Exam Vital Signs Temp Pulse Resp BP Pulse Ox O2 Del Method O2 Flow Rate 99.2 F 88 17 138/84 H 95 Room Air 0 01/19/25 11:58 01/19/25 11:58 01/19/25 11:58 01/19/25 11:58 01/19/25 11:58 01/19/25 11:58 01/19/25 00:00 Constitutional Constitutional: no acute distress Routine Respiratory Exam Respiratory: Present no resp distress Routine Abdominal Exam Abdominal: Present soft and wound (Midline incision with dressing clean dry intact); Absent tenderness or distended Assessment & Plan Plan 64M with history of colectomy for colon CA presenting with symptomatic incisional hernia status post open repair with mesh 01/18, gradually recovering Okay for DC today Will follow-up in 2 weeks PROCEDURES: Procedures Laparotomy, repair of incisional hernias with mesh
--- NOTE | 2025-01-19 12:50 | PC.NURSE ---
MD paz [email or web address].Per pt may dc after pt therapy today.
--- NOTE | 2025-01-19 12:50 | PD.SURDS ---
Planned Discharge Date 01/19/25 DS: Providers Provider Date of admission: 01/18/25 15:08 Primary care physician: Cody Duarte MD Admitting Provider: Ling Pandey MD Attending Provider on Admission: Ling Padney MD Attending Provider on DC: Ling Pandey MD Discharging Provider: Ling Pandey MD Diagnosis Discharge Diagnosis (1) Incisional hernia of anterior abdominal wall without obstruction or gangrene: Status: Acute Problem List Completed Was Problem List Reviewed/Reconciled?: Yes Exam Vital Signs Temp Pulse Resp BP Pulse Ox O2 Del Method O2 Flow Rate 99.2 F 88 17 138/84 H 95 Room Air 0 01/19/25 11:58 01/19/25 11:58 01/19/25 11:58 01/19/25 11:58 01/19/25 11:58 01/19/25 11:58 01/19/25 00:00 Discharge Plan Plan Patient Disposition: HOME (Self Care) Prescriptions/Referrals Prescriptions/Med Rec: New tramadol 50 mg tablet 50 mg PO Q6H MDD 4 tabs PRN (Reason: pain) Qty: 30 0RF Rx Instructions: Take 1 tablet as needed every 6 hours for moderate to severe pain docusate sodium [Colace] 100 mg capsule 100 mg PO QDAY PRN (Reason: constipation) Qty: 30 0RF Rx Instructions: Take 1 capsule per day as needed for constipation No Action cyanocobalamin (vitamin B-12) 1,000 mcg tablet, sublingual 1,000 mcg sublingual QDAY Qty: 30 3RF calcium 500 mg tablet 500 mg PO HS Referrals: Ling Pandey MD [Physician] - (You will receive a phone call to confirm a follow-up appointment with me in 2 weeks) Cody Duarte([facility])MD [Primary Care Provider] - Patient/Caregiver Discharge Instructions Other Discharge Activity Instructions:: You may resume showering tomorrow on 01/20 After showering you can remove your dressing and if you prefer can cover with gauze and secure with tape Change dressing 1 time daily You can stop covering the incision if there is no drainage Use the abdominal binder when you are out of bed and walking around Avoid lifting objects greater than 10 pounds for 6 weeks and avoid strenuous activity including bending or house/yard work also for 6 weeks If you develop pain not controlled by medications, fever, redness/swelling/drainage from the incision please feel free to call the office if during business hours or seek care in ER You may take ibuprofen as needed between doses of tramadol or instead of tramadol if pain is not severe You may also take Tylenol as needed for mild pain Education Materials: Hernia Repair Open Dc Print Language: Zambian Stand Alone Forms: Kathy Award Info., Patient Portal Info Letter, Work/Release Restrictions Discharge Order Discharge Orders: Discharge (Routine); Ordered 01/19/25 Ordered By: Ling Pandey Results Results: Laboratory Laboratory results: results reviewed Results: Imaging CT scan - abdomen: report reviewed and image reviewed PROCEDURES: Procedure Date 01/18/25 Procedures Laparotomy, repair of incisional hernias with mesh
[2025-01-19 15:00] VITALS: BP 157/91; PULSE 84; RESP 17; TEMP 36.7; O2SAT 97
--- NOTE | 2025-01-19 15:19 | PC.NURSE ---
Verified with MD mullen pt is clear to dc bp of 154/83- 77 HR. Per pt no complains of pain, chest pain pt comfortable just verbally said hes excited to go home.
--- NOTE | 2025-01-19 15:26 | PC.SS ---
SS met with patient regarding his d/c plan. Pt is alert/oriented. Pt was admitted for Ventral hernia [id number]. Pt confirmed demographic and contact information is correct on facesheet. Pt resides with and kids. Pt ambulates independently without assistance or DME. Pt is ok with all ADLs. Patient?s pharmacy of choice is [facility] [address]. Pt named her , Odalys Christianson medical decision maker if she is unable. Patient?s choice is to return home upon d/c. Pt states she is not diabetic and is not on dialysis. Pt states she follows up at [facility] and requests to continue with them. D/C plan: Return home Next of Kin: Odalys Christianson, , phone# [phone] PCP: [facility] Address: Correct on facesheet
== END 2025-01-19 15:22 | disposition home or self-care (01) ==
LOC: S3SX 15:15
PROVIDERS: Anesthesiology; Admitting Provider Surgery; PCP Family Medicine; Referring Provider Surgery; Visit Provider Surgery
PROC: (CPT 49595; principal; 2025-01-18 10:30)
DX: K43.2 Incisional hernia without obstruction or gangrene (principal); Z01.810 Encounter for preprocedural cardiovascular examination
CPT/HCPCS: 49595; 36415; 80053; 85025; 85610; 85730; 93005; 97161; A4217; A4649; C1781; G0378; J0690; J1171; J1885; J2250; J2704; J3010; J3490; J7120

== ENCOUNTER 2025-02-02 11:03 | Outpatient (AMB) | payer MEDICAID, SELFPAY ==
[2025-02-02 11:18] VITALS: BP 124/73; PULSE 74; RESP 18; TEMP 36.8; O2SAT 99; BMI 26.1
--- NOTE | 2025-02-02 11:18 | PD.GSCLVISIT ---
Vital Signs - [facility] 02/02/25 11:18 Height 1.7 m Height Method Stated Weight 75.466 kg Weight Measurement Method Standing Scale BMI 26.1 BP 124/73 Blood Pressure Source Automatic Cuff Blood Pressure Location Right Upper Arm Position Standing Respiration 18 Pulse 74 Pulse Source Monitor Temp 98.2 F Temp Source Temporal Artery Scan Pulse Oximetry (%) 99 Oxygen Delivery Method Room Air Med/Allergies Allergies & Medications Allergies No Known Allergies Allergy (Verified 02/02/25 11:19) Medication Reconciliation cyanocobalamin (vitamin B-12) 1,000 mcg sublingual tablet 1,000 mcg sublingual QDAY #30 tabs 12/08/23 [Rx Confirmed 02/02/25] calcium 500 mg tablet 500 mg PO HS 01/17/25 [History Confirmed 02/02/25] docusate sodium 100 mg capsule (Colace) 100 mg PO QDAY PRN constipation #30 caps 01/19/25 [Rx Confirmed 02/02/25] tramadol 50 mg tablet 50 mg PO Q6H PRN pain #30 tabs 01/19/25 [Rx Confirmed 02/02/25] MA Intake Visit Data Collection New Patient or Established: Established Patient (seen at [facility] within 3 years) Reason for Visit:: STAPLE REMOVAL Pain Present Currently: No Pain scale:: 0 Pain Scale Used: Freeman-Wagner/Numerical Floating Labor Gang Supervisor Required: Yes PCP or OBGYN visit in last 3 months: Yes Hx Now: No Do You Feel Safe at Home: Yes Authorities Contacted: N/A Smoking Status Smoking Status: Never smoker Immunization / Flu Flu Vaccine in the Last 12 Months: Yes Flu Vaccine Exclusion Criteria: Already Received Past Medical History Past Medical History NEUROLOGIC: Negative Neurological Disorders or Seizures CARDIAC: Positive Cardiac Disorders and Deep Vein Thrombosis (2 yrs ago); Negative Congestive Heart Failure RESPIRATORY: Positive Chest Deformities; Negative Chronic Obstructive Pulmonary Disease (COPD) or Asthma GASTROINTESTINAL: Positive Gastrointestinal Disorders, Colorectal Cancer, Obstructive Bowel (2 yrs ago), Hemorrhoids and Gastroesophageal Reflux Disease; Negative Obesity GENITOURINARY: Negative Genitourinary Disorders or Renal Disease MUSCULOSKELETAL: Negative Musculoskeletal Disorders ENDOCRINE: Negative Endocrine Disorders, Diabetes Mellitus Type 1 or Diabetes Mellitus Type 2 HEMATOLOGIC: Negative Blood Disorders, Anemia or Sickle Cell Disease OTHER HISTORY: Positive Hospitalization (bowel obstrucion 2 yrs ago), Blood Transfusions, Measles and Colorectal Cancer; Negative Shingles, Falls, Blood Transfusion Reaction, Anesthesia Reactions, Chemotherapy, Radiation Therapy, Chicken Pox or Mumps Family History FAMILY HISTORY: Positive Family Cardiac Disorders, Family Cancer and Family Surgery; Negative Family Neurologic Problems, Family Psychiatric Problems, Family Respiratory Disorders, Family Gastrointestinal Problems or Family Anesthesia Reaction Surgical History SURGICAL: Positive Bowel Surgery (colon resection) Social History SMOKING STATUS: Smoking status: Never smoker SUBSTANCE USE: Substance use type: does not use ALCOHOL: Alcohol Intake: Never HOUSING: Housing: House LIVES WITH: Lives With: Children, Family and Spouse Travel Risk Travel Hx Recent Travel: No HPI HPI Narrative 64M with history of colectomy for colon CA presenting with symptomatic incisional hernia status post open repair with mesh 01/18 here for planned follow up. Pt reports feeling well overall, his only complaint is that the luis are bothersome but he has no pain, no nausea/vomiting or fever, is eating well and having regular BMs. He had been having intermittent bleeding with BMs but has not noticed this lately ROS Review of Systems Systems Reviewed: All systems reviewed, normal except as documented Objective/Exam General General Appearance: alert, cooperative and well groomed Resp Respiratory exam: Absent respiratory distress Abdominal Abdominal exam: Present soft and incision (midline incision c/d/i with no erythema, luis removed today); Absent distention or tenderness Assessment & Plan Diagnosis / Problem List (1) Incisional hernia of anterior abdominal wall without obstruction or gangrene: Status: Acute Assessment & Plan: 64M with history of colectomy for colon CA presenting with symptomatic incisional hernia status post open repair with mesh 01/18, recovering well overall Plan: Follow up in 6 weeks Office Procedures GNS Level of Care Nursing/Assessment Patient Status: Established Patient Nursing Assessment/Reassesment: Medication Reconciliation, Update PMH in EMR and Vital Signs Coordination of Care: Complex Care and Chronic Disease 1-5, Education Complex Pt/Fam, Consent,records obtained, informed consent, 1 Ins Authorization and Staff clarify orders Miscellaneous Interventions: Staple/Suture Removal Established Patient Charge Established Patient Point Assignment: 120 Established Patient Point Charge: EP Level 4 (120-155) Patient Portal Questionaires Social History Living Situation History Housing: House Housing Other:: Pt lives with and kids Tobacco History Smoking Status: Never smoker Alcohol History Alcohol Intake: Never Domestic Abuse History Do You Feel Safe at Home: Yes Review of Systems Report any current symptoms Only answer those that you have currently: Past Medical History Past Medical History Have you ever been diagnosed with any of the following: Neurological Problems Seizures: No Cardiology Problems Congestive Heart Failure: No Deep Vein Thrombosis: Yes (2 yrs ago) Respiratory Problems Chronic Obstructive Pulmonary Disease (COPD): No Asthma: No Chest Deformities: Yes Stomache/Intestinal Problems Colorectal Cancer: Yes Obstructive Bowel: Yes (2 yrs ago) Hemorrhoids: Yes Gastroesophageal Reflux Disease: Yes Obesity: No Genital/Urinary Problems Renal Disease: No Endocrine Problems Diabetes Mellitus Type 1: No Diabetes Mellitus Type 2: No Blood Problems Anemia: No Sickle Cell Disease: No Other Problems Hospitalization: Yes (bowel obstrucion 2 yrs ago) Shingles: No Falls: No Blood Transfusions: Yes Blood Transfusion Reaction: No Anesthesia Reactions: No Chemotherapy: No Radiation Therapy: No Chicken Pox: No Measles: Yes Mumps: No Surgical History Herniorrhaphy: Yes (ventral abdominal hernia repair)
== END 2025-02-02 11:59 | disposition home or self-care (01) ==
LOC: HODSRG 11:03
PROVIDERS: PCP Family Medicine; Referring Provider Family Medicine; Supervising Provider Surgery; Visit Provider Surgery
DX: Z48.815 Encounter for surgical aftercare following surgery on the digestive system (principal); C18.9 Malignant neoplasm of colon, unspecified; Z86.718 Personal history of other venous thrombosis and embolism; K21.9 Gastro-esophageal reflux disease without esophagitis
CPT/HCPCS: 99214; G0463

== ENCOUNTER 2025-02-09 15:25 | Outpatient (AMB) | payer MEDICAID, SELFPAY ==
[2025-02-09 15:37] VITALS: BP 137/76; PULSE 66; RESP 16; TEMP 36.9; O2SAT 97; BMI 26.1
--- NOTE | 2025-02-09 15:37 | PD.GSCLVISIT ---
[facility] 02/09/25 15:37 Height 1.7 m Height Method Measured Weight 75.495 kg Weight Measurement Method Standing Scale BMI 26.1 BP 137/76 H Blood Pressure Source Automatic Cuff Blood Pressure Location Left Upper Arm Position Sitting Respiration 16 Pulse 66 Pulse Source Monitor Temp 98.5 F Temp Source Temporal Artery Scan Pulse Oximetry (%) 97 Oxygen Delivery Method Room Air Med/Allergies Allergies & Medications Allergies No Known Allergies Allergy (Verified 02/09/25 15:54) Medication Reconciliation cyanocobalamin (vitamin B-12) 1,000 mcg sublingual tablet 1,000 mcg sublingual QDAY #30 tabs 12/08/23 [Rx Confirmed 02/09/25] calcium 500 mg tablet 500 mg PO HS 01/17/25 [History Confirmed 02/09/25] docusate sodium 100 mg capsule (Colace) 100 mg PO QDAY PRN constipation #30 caps 01/19/25 [Rx Confirmed 02/09/25] tramadol 50 mg tablet 50 mg PO Q6H PRN pain #30 tabs 01/19/25 [Rx Confirmed 02/09/25] MA Intake Visit Data Collection New Patient or Established: Established Patient (seen at [facility] within 3 years) Seen by Clinical Staff ONLY (RN/MA): No Pain Present Currently: No Pain Scale Used: Freeman-Wagner/Numerical Registered Respiratory Therapist Required: Yes PCP or OBGYN visit in last 3 months: Yes Hx Now: No Do You Feel Safe at Home: Yes Authorities Contacted: N/A Smoking Status Smoking Status: Never smoker Immunization / Flu Flu Vaccine in the Last 12 Months: Yes Flu Vaccine Exclusion Criteria: Already Received Past Medical History Past Medical History NEUROLOGIC: Negative Neurological Disorders or Seizures CARDIAC: Positive Cardiac Disorders and Deep Vein Thrombosis (2 yrs ago); Negative Congestive Heart Failure RESPIRATORY: Positive Chest Deformities; Negative Chronic Obstructive Pulmonary Disease (COPD) or Asthma GASTROINTESTINAL: Positive Gastrointestinal Disorders, Colorectal Cancer, Obstructive Bowel (2 yrs ago), Hemorrhoids and Gastroesophageal Reflux Disease; Negative Obesity GENITOURINARY: Negative Genitourinary Disorders or Renal Disease ENDOCRINE: Negative Endocrine Disorders, Diabetes Mellitus Type 1 or Diabetes Mellitus Type 2 HEMATOLOGIC: Negative Blood Disorders, Anemia or Sickle Cell Disease OTHER HISTORY: Positive Hospitalization (bowel obstrucion 2 yrs ago), Blood Transfusions, Measles and Colorectal Cancer; Negative Shingles, Falls, Blood Transfusion Reaction, Anesthesia Reactions, Chemotherapy, Radiation Therapy, Chicken Pox or Mumps Family History FAMILY HISTORY: Positive Family Cardiac Disorders, Family Cancer and Family Surgery; Negative Family Neurologic Problems, Family Psychiatric Problems, Family Respiratory Disorders, Family Gastrointestinal Problems or Family Anesthesia Reaction Surgical History SURGICAL: Positive Bowel Surgery (colon resection) Social History SMOKING STATUS: Smoking status: Never smoker ALCOHOL: Alcohol Intake: Never HOUSING: Housing: House LIVES WITH: Lives With: Children, Family and Spouse HPI HPI Narrative 64M with history of colectomy for colon CA presenting with symptomatic incisional hernia status post open repair with mesh 01/18 here due to new onset of drainage. Per the wound began spontaneously draining yesterday, she showed me a picture and the drainage was serous. Pt reports feeling very well, he has no pain, no nausea or fever; he is eating well and having regular bladder and bowel function ROS Review of Systems Systems Reviewed: All systems reviewed, normal except as documented Objective/Exam General General Appearance: alert, cooperative and well groomed Resp Respiratory exam: Absent respiratory distress Abdominal Abdominal exam: Present soft and other (towards the inferior aspect of the incision there is a punctate opening where drainage has been originating; I packed this with 1/4 iodoform. No erythema, no fluctuance or tenderness); Absent distention or tenderness Assessment & Plan Diagnosis / Problem List (1) Incisional hernia of anterior abdominal wall without obstruction or gangrene: Status: Acute Assessment & Plan: 64M with history of colectomy for colon CA presenting with symptomatic incisional hernia status post open repair with mesh 01/18, with new serous drainage from the incision but no signs of infection. I instructed how to pack (she has done this for his wounds before) and provided ER precautions including if drainage becomes copious. All questions were answered and she is agreeable with this plan Office Procedures GNS Level of Care Nursing/Assessment Patient Status: Established Patient Nursing Assessment/Reassesment: Medication Reconciliation, Update PMH in EMR and Vital Signs Coordination of Care: Complex Care and Chronic Disease 1-5, Education Complex Pt/Fam, Consent,records obtained, informed consent, Results/Orders obtained and Staff clarify orders Special Needs: Language special needs Established Patient Charge Established Patient Point Assignment: 95 Established Patient Point Charge: EP Level 3 (80-115) Patient Portal Questionaires Social History Living Situation History Housing: House Housing Other:: Pt lives with and kids Tobacco History Smoking Status: Never smoker Alcohol History Alcohol Intake: Never Domestic Abuse History Do You Feel Safe at Home: Yes Review of Systems Report any current symptoms Only answer those that you have currently: Past Medical History Past Medical History Have you ever been diagnosed with any of the following: Neurological Problems Seizures: No Cardiology Problems Congestive Heart Failure: No Deep Vein Thrombosis: Yes (2 yrs ago) Respiratory Problems Chronic Obstructive Pulmonary Disease (COPD): No Asthma: No Chest Deformities: Yes Stomache/Intestinal Problems Colorectal Cancer: Yes Obstructive Bowel: Yes (2 yrs ago) Hemorrhoids: Yes Gastroesophageal Reflux Disease: Yes Obesity: No Genital/Urinary Problems Renal Disease: No Endocrine Problems Diabetes Mellitus Type 1: No Diabetes Mellitus Type 2: No Blood Problems Anemia: No Sickle Cell Disease: No Other Problems Hospitalization: Yes (bowel obstrucion 2 yrs ago) Shingles: No Falls: No Blood Transfusions: Yes Blood Transfusion Reaction: No Anesthesia Reactions: No Chemotherapy: No Radiation Therapy: No Chicken Pox: No Measles: Yes Mumps: No Surgical History Herniorrhaphy: Yes (ventral abdominal hernia repair)
== END 2025-02-09 15:53 | disposition home or self-care (01) ==
LOC: HODSRG 15:25
PROVIDERS: PCP Family Medicine; Referring Provider Family Medicine; Supervising Provider Surgery; Visit Provider Surgery
DX: Z48.815 Encounter for surgical aftercare following surgery on the digestive system (principal)
CPT/HCPCS: 99213; G0463

== ENCOUNTER 2025-02-20 11:01 | Outpatient (AMB) | payer MEDICAID, SELFPAY ==
[2025-02-20 11:16] VITALS: BP 130/87; PULSE 74; RESP 18; TEMP 37; O2SAT 96; BMI 26.5
--- NOTE | 2025-02-20 11:16 | PD.GSCLVISIT ---
[facility] 02/20/25 11:16 Height 1.7 m Height Method Measured Weight 76.685 kg Weight Measurement Method Standing Scale BMI 26.5 BP 130/87 H Blood Pressure Source Automatic Cuff Blood Pressure Location Left Upper Arm Position Sitting Respiration 18 Pulse 74 Pulse Source Monitor Temp 98.6 F Temp Source Temporal Artery Scan Pulse Oximetry (%) 96 Oxygen Delivery Method Room Air Med/Allergies Allergies & Medications Allergies No Known Allergies Allergy (Verified 02/20/25 11:17) Medication Reconciliation cyanocobalamin (vitamin B-12) 1,000 mcg sublingual tablet 1,000 mcg sublingual QDAY #30 tabs 12/08/23 [Rx Confirmed 02/20/25] calcium 500 mg tablet 500 mg PO HS 01/17/25 [History Confirmed 02/20/25] docusate sodium 100 mg capsule (Colace) 100 mg PO QDAY PRN constipation #30 caps 01/19/25 [Rx Confirmed 02/20/25] tramadol 50 mg tablet 50 mg PO Q6H PRN pain #30 tabs 01/19/25 [Rx Confirmed 02/20/25] MA Intake Visit Data Collection New Patient or Established: Established Patient (seen at [facility] within 3 years) Seen by Clinical Staff ONLY (RN/MA): No Reason for Visit:: 1 WEEK FOLLOW UP Pain Present Currently: No Pain Scale Used: Freeman-Wagner/Numerical Digital Strategist Required: Yes PCP or OBGYN visit in last 3 months: Yes Hx Now: No Do You Feel Safe at Home: Yes Authorities Contacted: N/A Smoking Status Smoking Status: Never smoker Immunization / Flu Flu Vaccine in the Last 12 Months: Yes Flu Vaccine Exclusion Criteria: Already Received Past Medical History Past Medical History NEUROLOGIC: Negative Neurological Disorders or Seizures CARDIAC: Positive Cardiac Disorders and Deep Vein Thrombosis (2 yrs ago); Negative Congestive Heart Failure RESPIRATORY: Positive Chest Deformities; Negative Chronic Obstructive Pulmonary Disease (COPD) or Asthma GASTROINTESTINAL: Positive Gastrointestinal Disorders, Colorectal Cancer, Obstructive Bowel (2 yrs ago), Hemorrhoids and Gastroesophageal Reflux Disease; Negative Obesity GENITOURINARY: Negative Genitourinary Disorders or Renal Disease ENDOCRINE: Negative Endocrine Disorders, Diabetes Mellitus Type 1 or Diabetes Mellitus Type 2 HEMATOLOGIC: Negative Blood Disorders, Anemia or Sickle Cell Disease OTHER HISTORY: Positive Hospitalization (bowel obstrucion 2 yrs ago), Blood Transfusions, Measles and Colorectal Cancer; Negative Shingles, Falls, Blood Transfusion Reaction, Anesthesia Reactions, Chemotherapy, Radiation Therapy, Chicken Pox or Mumps Family History FAMILY HISTORY: Positive Family Cardiac Disorders, Family Cancer and Family Surgery; Negative Family Neurologic Problems, Family Psychiatric Problems, Family Respiratory Disorders, Family Gastrointestinal Problems or Family Anesthesia Reaction Surgical History SURGICAL: Positive Bowel Surgery (colon resection) Social History SMOKING STATUS: Smoking status: Never smoker ALCOHOL: Alcohol Intake: Never HOUSING: Housing: House LIVES WITH: Lives With: Children, Family and Spouse HPI HPI Narrative 64M with history of colectomy for colon CA presenting with symptomatic incisional hernia status post open repair with mesh 01/18 here for follow up of drainage. Pt and report the wound has not been draining much the past few days, and when the dressing was changed yesterday the packing did not fit inside the wound. Pt reports he has mild pains which are manageable as well as some itching which has also improved. He continues to eat very well and have regular BMs ROS Review of Systems Systems Reviewed: All systems reviewed, normal except as documented Objective/Exam General General Appearance: alert, cooperative and well groomed Resp Respiratory exam: Absent respiratory distress Abdominal Abdominal exam: Present soft and incision (midline incision with punctate opening towards inferior aspect, too small for packing, no surrounding erythema and no staining on dressing that had been placed yesterday); Absent distention or tenderness Assessment & Plan Diagnosis / Problem List (1) Incisional hernia of anterior abdominal wall without obstruction or gangrene: Status: Acute Assessment & Plan: 64M with history of colectomy for colon CA presenting with symptomatic incisional hernia status post open repair with mesh 01/18 here for follow up of incisional drainage which has improved significantly over the last few days. I advised pt and that they can stop packing but should continue to cover the wound with gauze and will follow up in a few weeks Office Procedures GNS Level of Care Nursing/Assessment Patient Status: Established Patient Nursing Assessment/Reassesment: Medication Reconciliation, Update PMH in EMR and Vital Signs Coordination of Care: Complex Care and Chronic Disease 1-5, Consent,records obtained, informed consent, Education Simp Pt/Fam, Results/Orders obtained and Staff clarify orders Established Patient Charge Established Patient Point Assignment: 90 Established Patient Point Charge: EP Level 3 (80-115) Patient Portal Questionaires Social History Living Situation History Housing: House Housing Other:: Pt lives with and kids Tobacco History Smoking Status: Never smoker Alcohol History Alcohol Intake: Never Domestic Abuse History Do You Feel Safe at Home: Yes Review of Systems Report any current symptoms Only answer those that you have currently: Past Medical History Past Medical History Have you ever been diagnosed with any of the following: Neurological Problems Seizures: No Cardiology Problems Congestive Heart Failure: No Deep Vein Thrombosis: Yes (2 yrs ago) Respiratory Problems Chronic Obstructive Pulmonary Disease (COPD): No Asthma: No Chest Deformities: Yes Stomache/Intestinal Problems Colorectal Cancer: Yes Obstructive Bowel: Yes (2 yrs ago) Hemorrhoids: Yes Gastroesophageal Reflux Disease: Yes Obesity: No Genital/Urinary Problems Renal Disease: No Endocrine Problems Diabetes Mellitus Type 1: No Diabetes Mellitus Type 2: No Blood Problems Anemia: No Sickle Cell Disease: No Other Problems Hospitalization: Yes (bowel obstrucion 2 yrs ago) Shingles: No Falls: No Blood Transfusions: Yes Blood Transfusion Reaction: No Anesthesia Reactions: No Chemotherapy: No Radiation Therapy: No Chicken Pox: No Measles: Yes Mumps: No Surgical History Herniorrhaphy: Yes (ventral abdominal hernia repair)
== END 2025-02-20 11:40 | disposition home or self-care (01) ==
LOC: HODSRG 11:01
PROVIDERS: PCP Family Medicine; Referring Provider Family Medicine; Supervising Provider Surgery; Visit Provider Surgery
DX: Z48.815 Encounter for surgical aftercare following surgery on the digestive system (principal); Z85.038 Personal history of other malignant neoplasm of large intestine; Z86.718 Personal history of other venous thrombosis and embolism; K21.9 Gastro-esophageal reflux disease without esophagitis
CPT/HCPCS: 99213; G0463

== ENCOUNTER 2025-03-16 08:55 | Outpatient (AMB) | payer MEDICAID, SELFPAY ==
[2025-03-16 09:04] VITALS: BP 135/72; PULSE 67; RESP 16; TEMP 36.8; O2SAT 99; BMI 26.2
--- NOTE | 2025-03-16 09:04 | GSCOFFNT_ITS ---
[facility] Signs - [facility] 03/16/25 09:04 Height 1.7 m Height Method Measured Weight 75.948 kg Weight Measurement Method Standing Scale BMI 26.2 BP 135/72 H Blood Pressure Source Automatic Cuff Blood Pressure Location Left Upper Arm Position Sitting Respiration 16 Pulse 67 Pulse Source Monitor Temp 98.2 F Temp Source Temporal Artery Scan Pulse Oximetry (%) 99 Oxygen Delivery Method Room Air Med/Allergies Allergies & Medications Allergies No Known Allergies Allergy (Verified 03/16/25 09:05) Medication Reconciliation cyanocobalamin (vitamin B-12) 1,000 mcg sublingual tablet 1,000 mcg sublingual QDAY #30 tabs 12/08/23 [Rx Confirmed 03/16/25] calcium 500 mg tablet 500 mg PO HS 01/17/25 [History Confirmed 03/16/25] docusate sodium 100 mg capsule (Colace) 100 mg PO QDAY PRN constipation #30 caps 01/19/25 [Rx Confirmed 03/16/25] tramadol 50 mg tablet 50 mg PO Q6H PRN pain #30 tabs 01/19/25 [Rx Confirmed 03/16/25] hydrocortisone acetate 25 mg rectal suppository (Anusol-HC) 25 mg TN QHS PRN hemorrhoids #24 ea 03/16/25 [Rx] MA Intake Visit Data Collection New Patient or Established: Established Patient (seen at [facility] within 3 years) Seen by Clinical Staff ONLY (RN/MA): No Reason for Visit:: 6 WEEK F/U Pain Present Currently: No Pain Scale Used: Freeman-Wagner/Numerical Event Coordinator Marketing And Sales Required: Yes PCP or OBGYN visit in last 3 months: Yes Hx Now: No Do You Feel Safe at Home: Yes Authorities Contacted: N/A Smoking Status Smoking Status: Never smoker Immunization / Flu Flu Vaccine in the Last 12 Months: Yes Flu Vaccine Exclusion Criteria: Already Received Past Medical History Past Medical History NEUROLOGIC: Negative Neurological Disorders or Seizures CARDIAC: Positive Cardiac Disorders and Deep Vein Thrombosis (2 yrs ago); Negative Congestive Heart Failure RESPIRATORY: Positive Chest Deformities; Negative Chronic Obstructive Pulmonary Disease (COPD) or Asthma GASTROINTESTINAL: Positive Gastrointestinal Disorders, Colorectal Cancer, Obstructive Bowel (2 yrs ago), Hemorrhoids and Gastroesophageal Reflux Disease; Negative Obesity GENITOURINARY: Negative Genitourinary Disorders or Renal Disease ENDOCRINE: Negative Endocrine Disorders, Diabetes Mellitus Type 1 or Diabetes Mellitus Type 2 HEMATOLOGIC: Negative Blood Disorders, Anemia or Sickle Cell Disease OTHER HISTORY: Positive Hospitalization (bowel obstrucion 2 yrs ago), Blood Transfusions, Measles and Colorectal Cancer; Negative Shingles, Falls, Blood Transfusion Reaction, Anesthesia Reactions, Chemotherapy, Radiation Therapy, Chicken Pox or Mumps Family History FAMILY HISTORY: Positive Family Cardiac Disorders, Family Cancer and Family Surgery; Negative Family Neurologic Problems, Family Psychiatric Problems, Family Respiratory Disorders, Family Gastrointestinal Problems or Family Anesthesia Reaction Surgical History SURGICAL: Positive Bowel Surgery (colon resection) Social History SMOKING STATUS: Smoking status: Never smoker ALCOHOL: Alcohol Intake: Never HOUSING: Housing: House LIVES WITH: Lives With: Children, Family and Spouse HPI HPI Narrative HISTORY OF PRESENT ILLNESS I, Ling Pandey, have obtained verbal consent from the patient, to be recorded during this encounter which may include, but not limited to, medical history, examination, treatment plans, and relevant health information.? Patient was informed that recording will be read and reviewed by myself before inclusion in the medical chart. The patient is a male who presents for a follow-up of an incisional hernia and hemorrhoids. He reports that his abdominal condition has improved, with no further drainage observed since two days after his last visit. He is not experiencing any pain and has resumed his normal activities, although with caution to prevent recurrence of the hernia. His primary concern is the recent presence of blood in his stool over the past two weeks, characterized by bright red blood upon wiping and occasional streaking in the stool. His bowel movements vary, sometimes being easy and other times feeling constipated. He notes that the bleeding seems to increase when he is constipated. He has not used any medications or creams for hemorrhoids. His daily water intake is approximately 2.5 to 3 bottles, and he does not take fiber supplements. He occasionally experiences a sensation of impending diarrhea, but the stool is hard instead. He describes a burning sensation but reports no perianal pain. Prolonged sitting causes discomfort, leading him to stand. He believes the issue is internal and notes that a few drops of blood may appear when he stands after using the bathroom. He underwent hemorrhoid surgery around 2015 ROS Review of Systems Systems Reviewed: All systems reviewed, normal except as documented Objective/Exam General General Appearance: alert, cooperative and well groomed Resp Respiratory exam: Absent respiratory distress Abdominal Abdominal exam: Present soft and incision (midline incision well-healed, no erythema, no fluctuance); Absent distention, tenderness or hernia Assessment & Plan Diagnosis / Problem List (1) Incisional hernia of anterior abdominal wall without obstruction or gangrene: Status: Acute Assessment & Plan: Pt is now recovered well from hernia repair with wound well-healed (2) Hemorrhoids: Status: Acute Assessment & Plan: Symptoms of bright red blood in the stool and occasional streaking are consistent with internal hemorrhoids. Increasing water intake to at least four bottles per day and incorporating fiber supplements such as Metamucil or Benefiber into the diet, starting with one teaspoon and gradually increasing to three teaspoons per day, is recommended. Sitting in warm water can help alleviate bleeding and itching. A prescription for hydrocortisone suppositories will be sent to the pharmacy for use during flare-ups. Risks, benefits, and alternatives of treatment were discussed, including the potential for bloating with fiber supplements if water intake is insufficient, and the possibility of needing procedures for hemorrhoids if symptoms persist despite conservative measures. Surgery for hemorrhoids is generally avoided due to its painful nature and the likelihood of recurrence if constipation is not managed. Follow-up in 2 mos to reevaluate symptoms Office Procedures GNS Level of Care Nursing/Assessment Patient Status: Established Patient Nursing Assessment/Reassesment: Medication Reconciliation, Update PMH in EMR and Vital Signs Coordination of Care: Complex Care and Chronic Disease 1-5, Education Complex Pt/Fam, Consent,records obtained, informed consent, Results/Orders obtained and Staff clarify orders Special Needs: Language special needs Established Patient Charge Established Patient Point Assignment: 95 Established Patient Point Charge: EP Level 3 (80-115) Patient Portal Questionaires Social History Living Situation History Housing: House Housing Other:: Pt lives with and kids Tobacco History Smoking Status: Never smoker Alcohol History Alcohol Intake: Never Domestic Abuse History Do You Feel Safe at Home: Yes Review of Systems Report any current symptoms Only answer those that you have currently: Past Medical History Past Medical History Have you ever been diagnosed with any of the following: Neurological Problems Seizures: No Cardiology Problems Congestive Heart Failure: No Deep Vein Thrombosis: Yes (2 yrs ago) Respiratory Problems Chronic Obstructive Pulmonary Disease (COPD): No Asthma: No Chest Deformities: Yes Stomache/Intestinal Problems Colorectal Cancer: Yes Obstructive Bowel: Yes (2 yrs ago) Hemorrhoids: Yes Gastroesophageal Reflux Disease: Yes Obesity: No Genital/Urinary Problems Renal Disease: No Endocrine Problems Diabetes Mellitus Type 1: No Diabetes Mellitus Type 2: No Blood Problems Anemia: No Sickle Cell Disease: No Other Problems Hospitalization: Yes (bowel obstrucion 2 yrs ago) Shingles: No Falls: No Blood Transfusions: Yes Blood Transfusion Reaction: No Anesthesia Reactions: No Chemotherapy: No Radiation Therapy: No Chicken Pox: No Measles: Yes Mumps: No Surgical History Herniorrhaphy: Yes (ventral abdominal hernia repair)
== END 2025-03-16 09:29 | disposition home or self-care (01) ==
LOC: HODSRG 08:55
PROVIDERS: PCP Family Medicine; Referring Provider Family Medicine; Supervising Provider Surgery; Visit Provider Surgery
DX: Z48.815 Encounter for surgical aftercare following surgery on the digestive system (principal); K64.9 Unspecified hemorrhoids
CPT/HCPCS: 99213; G0463

== ENCOUNTER 2025-05-15 08:40 | Outpatient (AMB) | payer MEDICAID, SELFPAY ==
[2025-05-15 09:10] VITALS: BP 126/73; PULSE 68; RESP 20; TEMP 36.2; O2SAT 97; BMI 26.9
--- NOTE | 2025-05-15 09:10 | PD.GSCLVISIT ---
Vital Signs - [facility] 05/15/25 09:10 Height 1.7 m Height Method Measured Weight 77.791 kg Weight Measurement Method Standing Scale BMI 26.9 BP 126/73 Blood Pressure Source Automatic Cuff Blood Pressure Location Left Upper Arm Position Sitting Respiration 20 Pulse 68 Pulse Source Monitor Temp 97.2 F Temp Source Temporal Artery Scan Pulse Oximetry (%) 97 Oxygen Delivery Method Room Air Med/Allergies Allergies & Medications Allergies No Known Allergies Allergy (Verified 05/15/25 09:11) Medication Reconciliation cyanocobalamin (vitamin B-12) 1,000 mcg sublingual tablet 1,000 mcg sublingual QDAY #30 tabs 12/08/23 [Rx Confirmed 05/15/25] calcium 500 mg tablet 500 mg PO HS 01/17/25 [History Confirmed 05/15/25] docusate sodium 100 mg capsule (Colace) 100 mg PO QDAY PRN constipation #30 caps 01/19/25 [Rx Confirmed 05/15/25] tramadol 50 mg tablet 50 mg PO Q6H PRN pain #30 tabs 01/19/25 [Rx Confirmed 05/15/25] hydrocortisone acetate 25 mg rectal suppository (Anusol-HC) 25 mg KS QHS PRN hemorrhoids #24 ea 03/16/25 [Rx Confirmed 05/15/25] MA Intake Visit Data Collection New Patient or Established: Established Patient (seen at [facility] within 3 years) Seen by Clinical Staff ONLY (RN/HARLEY): No Reason for Visit:: 2 MONTH F/U Pain Present Currently: No Pain Scale Used: Freeman-Wagner/[employer] Apprentice Required: Yes PCP or OBGYN visit in last 3 months: Yes Hx Now: No Do You Feel Safe at Home: Yes Authorities Contacted: N/A Smoking Status Smoking Status: Never smoker Immunization / Flu Flu Vaccine in the Last 12 Months: No Flu Vaccine Exclusion Criteria: Refused by Patient Past Medical History Past Medical History NEUROLOGIC: Negative Neurological Disorders or Seizures CARDIAC: Positive Cardiac Disorders and Deep Vein Thrombosis (2 yrs ago); Negative Congestive Heart Failure RESPIRATORY: Positive Chest Deformities; Negative Chronic Obstructive Pulmonary Disease (COPD) or Asthma GASTROINTESTINAL: Positive Gastrointestinal Disorders, Colorectal Cancer, Obstructive Bowel (2 yrs ago), Hemorrhoids and Gastroesophageal Reflux Disease; Negative Obesity GENITOURINARY: Negative Genitourinary Disorders or Renal Disease ENDOCRINE: Negative Endocrine Disorders, Diabetes Mellitus Type 1 or Diabetes Mellitus Type 2 HEMATOLOGIC: Negative Blood Disorders, Anemia or Sickle Cell Disease OTHER HISTORY: Positive Hospitalization (bowel obstrucion 2 yrs ago), Blood Transfusions, Measles and Colorectal Cancer; Negative Shingles, Falls, Blood Transfusion Reaction, Anesthesia Reactions, Chemotherapy, Radiation Therapy, Chicken Pox or Mumps Family History FAMILY HISTORY: Positive Family Cardiac Disorders, Family Cancer and Family Surgery; Negative Family Neurologic Problems, Family Psychiatric Problems, Family Respiratory Disorders, Family Gastrointestinal Problems or Family Anesthesia Reaction Surgical History SURGICAL: Positive Bowel Surgery (colon resection) Social History SMOKING STATUS: Smoking status: Never smoker ALCOHOL: Alcohol Intake: Never HOUSING: Housing: House LIVES WITH: Lives With: Children, Family and Spouse HPI HPI Narrative 64M with history of colon CA s/p R hemicolectomy 02/2023, course complicated by incisional hernia repaired 01/2025 here for follow up. Overall pt feels well, his hemorrhoid symptoms have improved with only occasional bleeding and he is trying to drink more water, now around 4 bottles as compared to 2 or 3. He has not yet started taking fiber but generally feels that he does not have to strain though recently had a loose BM. Recently pt has noted a new bulge of the abdomen which tends to increase after he eats, which is superior and to his left of the prior incisional hernia ROS Review of Systems Systems Reviewed: All systems reviewed, normal except as documented Objective/Exam General General Appearance: alert, cooperative and well groomed Resp Respiratory exam: Absent respiratory distress Abdominal Abdominal exam: Present soft, incision (midline incision healed) and hernia (palpable bulge with cough superior and to the left of incision concerning for hernia); Absent distention or tenderness Assessment & Plan Diagnosis / Problem List (1) Incisional hernia of anterior abdominal wall without obstruction or gangrene: Status: Acute Assessment & Plan: 64M with history of colon CA s/p R hemicolectomy 02/2023, course complicated by incisional hernia repaired 01/2025 here for follow up, with exam concerning for a new/recurrent ventral hernia superior to the previously repaired hernia. I will evaluate with CT and explained that pt may need to be referred out for laparoscopic/robotic repair given recent open repair (2) Hemorrhoids: Status: Acute Assessment & Plan: Symptoms currently well-managed, I recommended pt initiate fiber to avoid loose stools Orders: Orders CT abdomen pelvis w con 1 Week K43.2 - Incisional hernia without obstruction or gangrene Office Procedures GNS Level of Care Nursing/Assessment Patient Status: Established Patient Nursing Assessment/Reassesment: Medication Reconciliation, Update PMH in EMR and Vital Signs Coordination of Care: Complex Care and Chronic Disease 1-5, Education Complex Pt/Fam, Consent,records obtained, informed consent, Results/Orders obtained and Staff clarify orders Special Needs: Language special needs Established Patient Charge Established Patient Point Assignment: 95 Established Patient Point Charge: EP Level 3 (80-115) Patient Portal Questionaires Social History Living Situation History Housing: House Housing Other:: Pt lives with and kids Tobacco History Smoking Status: Never smoker Alcohol History Alcohol Intake: Never Domestic Abuse History Do You Feel Safe at Home: Yes Review of Systems Report any current symptoms Only answer those that you have currently: Past Medical History Past Medical History Have you ever been diagnosed with any of the following: Neurological Problems Seizures: No Cardiology Problems Congestive Heart Failure: No Deep Vein Thrombosis: Yes (2 yrs ago) Respiratory Problems Chronic Obstructive Pulmonary Disease (COPD): No Asthma: No Chest Deformities: Yes Stomache/Intestinal Problems Colorectal Cancer: Yes Obstructive Bowel: Yes (2 yrs ago) Hemorrhoids: Yes Gastroesophageal Reflux Disease: Yes Obesity: No Genital/Urinary Problems Renal Disease: No Endocrine Problems Diabetes Mellitus Type 1: No Diabetes Mellitus Type 2: No Blood Problems Anemia: No Sickle Cell Disease: No Other Problems Hospitalization: Yes (bowel obstrucion 2 yrs ago) Shingles: No Falls: No Blood Transfusions: Yes Blood Transfusion Reaction: No Anesthesia Reactions: No Chemotherapy: No Radiation Therapy: No Chicken Pox: No Measles: Yes Mumps: No Surgical History Herniorrhaphy: Yes (ventral abdominal hernia repair)
== END 2025-05-15 09:20 | disposition home or self-care (01) ==
LOC: HODSRG 08:40
PROVIDERS: PCP Family Medicine; Referring Provider Family Medicine; Supervising Provider Surgery; Visit Provider Surgery
DX: K43.2 Incisional hernia without obstruction or gangrene (principal); K64.9 Unspecified hemorrhoids; Z85.038 Personal history of other malignant neoplasm of large intestine; E66.9 Obesity, unspecified; Z68.26 Body mass index [BMI] 26.0-26.9, adult
CPT/HCPCS: 99213; G0463

== ENCOUNTER 2025-05-17 09:54 | Outpatient (RCR) | payer MEDICAID, SELFPAY | END 2025-06-07 23:59 | disposition home or self-care (01) | LOC: SCTC 09:54 | PROVIDERS: Referring Provider Nurse Practitioner Family; Visit Provider Nurse Practitioner Family | DX: C18.2 Malignant neoplasm of ascending colon (principal); K57.90 Diverticulosis of intestine, part unspecified, without perforation or abscess without bleeding; K64.8 Other hemorrhoids; Z90.49 Acquired absence of other specified parts of digestive tract; M85.80 Other specified disorders of bone density and structure, unspecified site | CPT/HCPCS: 99212; G0463 ==